=== PATIENT | male | born 1950 | race Caucasian/White ===

== ENCOUNTER → 2016-05-19 | Outpatient (CLI) | payer BC ==
--- NOTE | 2016-05-19 14:26 | US ---
EXAMINATION TYPE: US prostate transrectal DATE OF EXAM: 05/19/2016 9:14 AM COMPARISON: NONE CLINICAL HISTORY: Elevated PSA, no urinary symptoms, unknown previous labs. This examination was performed using the transrectal probe. EXAM MEASUREMENTS: Gland Size: 4.6 x 5.2 x 3.7cm Volume: 47.0ml Predicted PSA: 5.6 Actual PSA (if available):4.7 TECHNOLOGIST IMPRESSION: Heterogeneous PZ with no obvious focal areas seen, calcified CZ Seminal vesicles are not well seen on initial images saved. Prostate gland is enlarged in size and he terogeneous in appearance. Central zone calcifications are present. No worrisome hypoechoic periphera l zone nodule is clearly seen. IMPRESSION: Prostate gland is enlarged in size consistent with BPH. No worrisome nodule is evident.
== END | disposition home or self-care (01) ==
LOC: RADUSMAIN 08:53
PROVIDERS: ATTEND Family Medicine
DX: N40.0 Benign prostatic hyperplasia without lower urinary tract symptoms (principal)
CPT/HCPCS: 76872

== ENCOUNTER → 2016-06-29 | Outpatient (CLI) | payer BC ==
[2016-06-29 07:00] LABS: CH 31.3; CHCM 34.6; HCT 45.6 % (39.0-53.0); HDW 2.53; HGB 15.6 gm/dL (13.0-17.5); MCH 31.2 pg (25.0-35.0); MCHC 34.3 g/dL (31.0-37.0); MCV 90.9 fL (80.0-100.0); Mean Platelet Volume 8.1; RBC 5.02 m/uL (4.30-5.90); RDW 12.4 % (11.5-15.5); WBC 9.7 k/uL (3.8-10.6)
[2016-06-29 07:36] LABS: Anion Gap 12 mmol/L; Blood Urea Nitrogen 15 mg/dL (9-20); Carbon Dioxide 25 mmol/L (22-30); Chloride 106 mmol/L (98-107); Non-African American GFR(MDRD) >60 (>60 ml/min/1.73 sqM); Potassium 4.4 mmol/L (3.5-5.1); Sodium 143 mmol/L (137-145)
== END | disposition home or self-care (01) ==
LOC: LABPAT 06:33
PROVIDERS: ATTEND Internal Medicine Interventional Cardiology
DX: Z01.812 Encounter for preprocedural laboratory examination (principal); I10 Essential (primary) hypertension; I25.10 Atherosclerotic heart disease of native coronary artery without angina pectoris; R06.02 Shortness of breath; R94.39 Abnormal result of other cardiovascular function study
CPT/HCPCS: 80051; 82565; 84520; 85027

== ENCOUNTER 2016-07-01 06:16 | Day surgery (SDC) | payer BC ==
[2016-06-28 10:28] VITALS: BMI 32.1
[~2016-07-01 06:16] MED LIST: ALPRAZolam 0.25 MG TAB PO PRN; ALPRAZolam 0.5 MG TAB PO PRN; ASPIRIN 325 MG TAB PO STA; ATORVASTATIN 80 MG TAB PO STA; NITROGLYCERIN SL TABS 0.4 MG TAB SUBLINGUAL PRN; SODIUM CHLORIDE 0.9% 1,000 ML in EMPTY BAG 1 BAG IV ONE
[2016-07-01 06:45] VITALS: RESP 16; TEMP 97.9
[2016-07-01] MEDS ORDERED: diphenhydrAMINE 50 MG/ML 1 ML VIAL ONE (07:17)
[2016-07-01] MEDS ORDERED: LIDOCAINE 2% INJ 20 MG/ML (20 ML MDV) ONE (07:17)
[2016-07-01] MEDS ORDERED: MIDAZOLAM 2 MG/2 ML VIAL ONE (07:17)
[2016-07-01] MEDS ORDERED: SODIUM CHLORIDE 0.9% (PF) 10 ML VIAL ONE (07:27)
[2016-07-01] MEDS ORDERED: VERAPAMIL 2.5 MG/ML 2 ML AMP ONE (07:27)
[2016-07-01] MEDS ORDERED: HEPARIN SODIUM 1,000 UNIT/ML VIAL ONE (07:30)
[2016-07-01] MEDS ORDERED: diphenhydrAMINE 50 MG/ML 1 ML VIAL IVP ONE (07:36)
[2016-07-01] MEDS ORDERED: MIDAZOLAM 2 MG/2 ML VIAL IV ONE (07:37)
[2016-07-01] MEDS ORDERED: LIDOCAINE 2% INJ 20 MG/ML SQ ONE (07:41)
[2016-07-01] MEDS ORDERED: VERAPAMIL SYRINGE (5 MG/10 ML) INTRAARTER ONE (07:43)
[2016-07-01] MEDS ORDERED: IOHEXOL 350 MG/ML 100 ML BOTTLE INJ ONE (08:04)
[2016-07-01] MEDS ORDERED: RX INFO: IV CONTRAST WAS GIVEN 1 EACH MISC MISCELLANE PRN (08:22)
[2016-07-01] MEDS ORDERED: SODIUM CHLORIDE 0.9% 1,000 ML IV SCH (08:30)
--- NOTE | 2016-07-01 09:22 | CC ---
DATE OF SERVICE: 07/01/2016 PROCEDURE: Left heart catheterization, coronary angiography and left ventriculography. Performed by Dr. Linda Doherty. CLINICAL INFORMATION: Mr. Shakir Rodriguez is a 65-year-old gentleman who has known history of hypertension, hyperlipidemia, who underwent stenting of mid LAD performed in 2008 by me. Since then, he has done well. A repeat cardiac catheterization in 2011 suggested that the stented segment was patent and the left main did not have any significant stenosis. He was doing well on medical therapy and recently had a stress test, walked for 9 minutes and there was a question of inferobasal hypokinesia with some subjective symptoms of chest tightness at 9 minutes of exercise and a heart rate of 130 beats/min. There was a medium-sized reversible defect mid and inferobasal segment noted. Given this, he was advised coronary angiography. Risks, benefits, options, and rationale were explained to the patient in great detail prior to the procedure. PROCEDURE NOTE: Under local anesthesia and strict aseptic precautions, a 6 Korean introducer was placed in the right radial artery. Using an Ultimate 1 catheter, I performed selective coronary angiography and then used a pigtail catheter to check LV pressures and performed an LV gram. Patient tolerated the procedure well without complications. The sheath was taken out and TR band applied uneventfully with good saturation in the fingers of the right hand. CARDIAC CATHETERIZATION FINDINGS: The left ventricle end-diastolic pressure was about 12 mmHg without any gradient across the aortic valve. LEFT VENTRICULOGRAM: This was performed in 30 degree KELYL projection and revealed left ventricle is of normal size with good systolic function. Ejection fraction of 60% without mitral regurgitation. LEFT MAIN CORONARY ARTERY: This is a short vessel, which is angulated and there is evidence of about a 30% to 35% narrowing in the distal left main just before it bifurcates into LAD and circumflex. Compared to the previous study, there is some modest progression of disease noted. This was best seen in a 15 degree KELLY 35 caudal projection. The left main then bifurcates into LAD and circumflex. The distal left main has about a 30% to 35% narrowing. This is not a surgical left main. LEFT ANTERIOR DESCENDING CORONARY ARTERY: This is a good caliber vessel that extends along the anterior wall and gives off a good-sized diagonal branch very proximally. After the diagonal branch, the LAD has been stented and the stented segment is widely patent. There is a septal branch that comes off right before the stented segment and the septal branch has about a 50% to 55% stenosis. The stent itself is widely patent with no more than 30% narrowing. The diagonal branch as well as LAD and septal branch are free of significant disease. The septal branch in its proximal portion before the stented segment has about a 50% to 55% narrowing. The LAD branches are free of significant disease. The diagonal branch is of good caliber and distribution, is also free of significant disease. LEFT POSTERIOR CIRCUMFLEX CORONARY ARTERY: Technically a dominant vessel; gives off a large obtuse marginal that runs laterally, is free of significant disease, then the circumflex continues in the AV groove and gives several distal branches, all the 3 distal branches are smaller in caliber but no significant disease, and supply a fair amount of myocardium. Circumflex therefore is disease-free vessel relatively. RIGHT CORONARY ARTERY: This vessel is a nondominant vessel, has about a 50% to 55% mid lesion, gives off an acute marginal branch, but overall there is no critical stenosis in this nondominant RCA that supplies a fair amount of myocardium. FINAL IMPRESSION: This patient has a left dominant system. There is a 30% to 35% distal left main disease. Left anterior descending artery in the stented segment, the diagonal and septal are relatively free of any significant disease and circumflex is free of significant disease. Right is nondominant, has a 55% mid lesion. Left ventricular size and systolic function is normal. The filling pressures are also normal. There is no evidence of any mitral regurgitation. RECOMMENDATION: This patient walked for 9 minutes at a heart rate of 130 beats per minute and the area of ischemia in the mid and inferobasal segment does not correspond to any angiographic findings. The left main progression of disease is not surgical. After careful evaluation of the angiograms and looking at his clinical scenario that he is able to walk for 30 to 35 minutes at a casual pace without a problem and a 9 minute walk on the treadmill on standard Richard protocol, I do not believe we are dealing with any significant left main disease. Findings were discussed with the patient in great detail. I am recommending that he can be discharged today on medical therapy. Will add a small dose of beta pinky and also aggressively control his lipid profile. Patient will be discharged later on today and see Dr. Bagley in the office.
--- NOTE | 2016-07-01 09:25 | LTR ---
July 01, 2016 RE: JenniferShakir Dear Dr. Veloz; Thank you for the opportunity to participate in the care of Mr. Rodriguez. Please find enclosed my detailed cardiac cath report for your records. This gentleman has some progression of disease, but I do not believe any surgical intervention is necessary. The left main is about 30% to 35% narrowed prior to bifurcation. Continued medical therapy with an LDL goal of under 70 and addition of a small dose of beta pinky is advised. Thank you for your referral and please call for questions. With kindest regard. Sincerely yours, HAYLEE WELLER MD
[2016-07-01 10:07] VITALS: BP 148/76; PULSE 70
[2016-07-01] MEDS ORDERED: ACETAMINOPHEN TAB 325 MG TAB ONE (12:39)
== END 2016-07-01 16:00 | disposition home or self-care (01) ==
LOC: CATHCVL 06:16
PROVIDERS: ATTEND Internal Medicine Interventional Cardiology
DX: I25.110 Atherosclerotic heart disease of native coronary artery with unstable angina pectoris (principal); Z95.5 Presence of coronary angioplasty implant and graft; I10 Essential (primary) hypertension; E78.5 Hyperlipidemia, unspecified; Z79.82 Long term (current) use of aspirin; Z79.899 Other long term (current) drug therapy
CPT/HCPCS: 93458; 99152; 99153; C1894; J2001; J2250; J1200; Q9967; J1644

== ENCOUNTER → 2019-02-26 | Outpatient (CLI) | payer MEDICARE, OTHER ==
--- NOTE | 2019-02-26 07:50 | CT ---
EXAMINATION TYPE: CT chest wo con DATE OF EXAM: 02/26/2019 COMPARISON: None HISTORY: Cough, asthma CT DLP: 434.5 mGycm, Automated exposure control for dose reduction was used. CONTRAST: Performed injected with 0 mL of Isovue 300. TECHNIQUE: Axial images were obtained at 5 mm thick sections. Reconstructed images are reviewed on [employer] computer in the coronal plane. FINDINGS: Portion of the thyroid visualized is normal. No suspicious lung nodules or focal infiltrates are present. No enlarged mediastinal or hilar adenopathy is evident. The ascending aorta diameter at the level o f the main pulmonary artery is 3.6 cm. The main pulmonary artery diameter at the bifurcation is 2.6 cm. There is dense extensive coronary artery calcification present. Limited CT sections are obtained through the upper abdomen. Calcified granuloma may be within the rig ht lobe liver. Upper abdomen is otherwise unremarkable. IMPRESSIONS: 1. No suspicious acute changes.
== END | disposition home or self-care (01) ==
LOC: RADCTMAIN 07:24
PROVIDERS: ATTEND Internal Medicine Pulmonary Disease
DX: J45.909 Unspecified asthma, uncomplicated (principal); E66.9 Obesity, unspecified; E11.9 Type 2 diabetes mellitus without complications; I24.9 Acute ischemic heart disease, unspecified; M10.9 Gout, unspecified; K21.9 Gastro-esophageal reflux disease without esophagitis
CPT/HCPCS: 71250

== ENCOUNTER → 2020-03-24 | Outpatient (CLI) | payer MEDICARE, OTHER ==
--- NOTE | 2020-03-24 10:03 | US ---
EXAMINATION TYPE: US kidneys/renal and bladder DATE OF EXAM: 03/24/2020 COMPARISON: NONE CLINICAL HISTORY: R31.29 Hematuria. EXAM MEASUREMENTS: Right Kidney: 10.1 x 5.2 x 4.8 cm Left Kidney: 11.4 x 6.4 x 5.0 cm Right Kidney: No hydronephrosis or masses seen Left Kidney: No hydronephrosis. Cystic area visualized measuring 1.9 x 2.0 x 2.5 cm Bladder: wnl Bilateral Jets seen: yes There is no evidence for hydronephrosis at this point in time. No nephrolithiasis is seen. The uri nary bladder is anechoic. Bilateral ureteral jets are seen. IMPRESSION: 1. Cortical renal cyst left kidney.
== END | disposition home or self-care (01) ==
LOC: RADUSWWP 07:01
PROVIDERS: ATTEND Urology
DX: N28.1 Cyst of kidney, acquired (principal); R97.20 Elevated prostate specific antigen [PSA]
CPT/HCPCS: 36415; 76770; 84153

== ENCOUNTER → 2020-04-28 | Outpatient (CLI) | payer MEDICARE ==
[2020-04-28 11:41] LABS: African American GFR (CKD) >90 (>60 ml/min/1.73 sqM); Blood Urea Nitrogen 16 mg/dL (9-20); Non-African American GFR(CKD) 86 (>60 ml/min/1.73 sqM)
--- NOTE | 2020-04-28 15:37 | NM ---
EXAMINATION TYPE: NM bone scan whole body DATE OF EXAM: 04/28/2020 COMPARISON: CT abdomen and pelvis earlier today. Chest CT February 26, 2019. HISTORY: Prostate cancer. Delayed whole-body scanning was performed following the injection of 22.5 mCi Tc 99m MDP. Images acq uired 3 hours post injection. Images obtained in anterior and posterior projection along with additio nal projections of the thorax and abdomen. FINDINGS: Focus of increased radiotracer uptake in the right lower sternum corresponds to subtle 3 mm sclerotic lesion coronal image 20 in January 2019, suspect enlargement of this lesion consistent with osseous metastatic disease. There are 2 Smaller foci of radiotracer uptake in the lower thoracic spine withou t CT correlate. Area of increased radiotracer uptake left neck mid cervical region of uncertain etiol ogy. Areas of increased radiotracer uptake left foot at first metatarsophalangeal joint and midfoot region centrally to lateral aspects presumed product of degenerative change. Mildly distended bladder. Moderate degenerative changes bilateral knees. IMPRESSION: Early osseous metastatic disease suspected as detailed above. Correlate with PSA values.
--- NOTE | 2020-04-28 15:51 | CT ---
EXAMINATION TYPE: CT abdomen pelvis w con DATE OF EXAM: 04/28/2020 COMPARISON: No prior comparisons available HISTORY: 69-year-old male C61, Follow up for prostate CA TECHNIQUE: Contiguous axial scanning of the abdomen and pelvis following administration of 100 ml Iso rachel 300 IV contrast. Delayed images through the kidneys and coronal/sagittal reconstructions perform ed. CT DLP: 1218 mGycm Automated exposure control for dose reduction was used. FINDINGS: Heart normal size without pericardial effusion. Some strandy atelectasis at the peripheral left base and basilar right middle lobe. No pleural effusion. Small 7 mm lower left paraesophageal lymph node is nonspecific. There may be mild fatty infiltration of the liver. Calcified granuloma suggested along the right hepa tic dome. Portal venous system is patent. No biliary ductal dilatation. Gallbladder, adrenal glands, right kidney, spleen, and pancreas appear within normal limits. 2.3 cm cortical cyst posterior left kidney. No dilated small bowel, free fluid, or free air. Scattered mild stool. Oral contrast progressed into the mid sigmoid colon. Sigmoid colon is redundant . Scattered diverticular change in the left side of the colon. No pericolonic inflammatory change. Some scattered shotty retroperitoneal lymph nodes measuring up to 8 mm in the left para-aortic region , axial image 47. These are nonspecific. No mesenteric lymphadenopathy. Enlarged left external iliac chain lymph node at 1.5 cm, axial image 65 and borderline-sized 8mm righ t external iliac chain lymph node, axial image 68. Bladder urine distended with mild circumference of wall thickening and minimal perivesicular fat stra nding anteriorly. Prostate gland enlarged at 5.5 cm wide with some central calcifications. No abnorma l fluid collection the pelvis. Patulous left inguinal canal. Bones: Heterotopic ossification along the bilateral abductor origins, right greater the left suggesti ng sequela of prior injury. Mild degenerative change of both hips. Mild degenerative change left SI j oint. 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 Mild to moderate degenerative disc disease lower lumbar spine. No osteoblastic lesion identified. IMPRESSION: 1. PROSTATOMEGALY 5.5 CM WIDE. 2. ENLARGED LEFT EXTERNAL ILIAC CHAIN LYMPH NODE AT 1.5 CM. CORRELATE WITH ANY AVAILABLE OUTSIDE PRIO RS TO DETERMINE STABILITY. METASTATIC LYMPH NODE NOT EXCLUDED AT THIS TIME. 3. BORDERLINE SIZED 8MM RIGHT EXTERNAL ILIAC CHAIN LYMPH NODE AND NONSPECIFIC BORDERLINE SIZED 8 MM L EFT PARA-AORTIC LYMPH NODE. THIS CAN BE REASSESSED AT FOLLOW-UP. 4. MILD CIRCUMFERENTIAL BLADDER WALL THICKENING COULD REPRESENT CHRONIC BLADDER WALL HYPERTROPHY OR C YSTITIS. CLINICALLY CORRELATE. 5. HEPATIC STEATOSIS AND LEFT-SIDED COLONIC DIVERTICULOSIS.
== END | disposition home or self-care (01) ==
LOC: RADNMMAIN 10:44
PROVIDERS: ATTEND Urology
DX: N40.0 Benign prostatic hyperplasia without lower urinary tract symptoms (principal); R59.9 Enlarged lymph nodes, unspecified; N32.89 Other specified disorders of bladder; K76.0 Fatty (change of) liver, not elsewhere classified; K57.30 Diverticulosis of large intestine without perforation or abscess without bleeding; C79.51 Secondary malignant neoplasm of bone; C61 Malignant neoplasm of prostate
CPT/HCPCS: 82565; 84520; 74177; 78306; 36415; A9503; Q9967

== ENCOUNTER → 2020-08-13 | Outpatient (CLI) | payer MEDICARE ==
[2020-08-13 09:42] LABS: African American GFR (CKD) >90 (>60 ml/min/1.73 sqM); Blood Urea Nitrogen 13 mg/dL (9-20); Non-African American GFR(CKD) 90 (>60 ml/min/1.73 sqM)
--- NOTE | 2020-08-13 12:15 | CT ---
EXAMINATION TYPE: CT abdomen pelvis w con DATE OF EXAM: 08/13/2020 COMPARISON: CT abdomen and pelvis April 28, 2020 HISTORY: Prostate CA CT DLP: 1302 mGycm, Automated Exposure Control for Dose Reduction was Utilized. CONTRAST: CT scan of the abdomen and pelvis is performed with oral and with IV Contrast, patient injected with 100 mL of Isovue 300. FINDINGS: LUNG BASES: Mild linear scarring anterior left lung base redemonstrated. LIVER/GB: Liver remains diffusely low dense consistent with diffuse fatty infiltration. PANCREAS: No significant abnormality is seen. SPLEEN: No significant abnormality is seen. ADRENALS: No significant abnormality is seen. KIDNEYS: Stable 2.3 cm thin-walled cyst posteriorly in the left kidney midpole level series 7 image 3 4. Satisfactory distention of the bladder. BOWEL: Oral contrast reaches level of the distal left colon. No suspicious small or large bowel dilat ation is present. PROSTATE/SEMINAL VESICLES: Enlarged prostate gland consistent with BPH. Central calcifications. LYMPH NODES: Less prominent left external iliac chain lymph node measuring 10 x 6 mm axial image 63 v ersus 15 x 14 mm prior study image 65. Stable nonenlarged right external iliac chain lymph node on im age 64. No new greater than 1 cm adenopathy. Stable prominent but subcentimeter left periaortic lymph nodes axial image 44 for reference. OSSEOUS STRUCTURES: Moderate disc space narrowing L4-L5 and L5-S1 levels. Multilevel spinous process hypertrophy. Facet arthropathy lower lumbar levels. OTHER: Heterogeneous fat stranding in the anterior abdominal wall the level of umbilicus could reflec t scarring from interval laparoscopic surgery, correlate clinically. IMPRESSION: Improved left external iliac chain enlarged lymph node. No new greater than 1 cm lymph no camille. No new suspicious mass or adenopathy.
== END | disposition home or self-care (01) ==
LOC: RADCTMAIN 08:55
PROVIDERS: ATTEND Urology
DX: C61 Malignant neoplasm of prostate (principal)
CPT/HCPCS: 82565; 84520; 74177; 36415; Q9967 ×2

== ENCOUNTER → 2020-12-31 | Outpatient (CLI) | payer MEDICARE ==
[2020-12-31 12:34] LABS: Prostate Specific Antigen <0.1 ng/mL (0.0-6.5)
== END | disposition home or self-care (01) ==
LOC: LABWHC1 07:19
PROVIDERS: ATTEND Urology
DX: C61 Malignant neoplasm of prostate (principal)
CPT/HCPCS: 36415; 84153; 84403

== ENCOUNTER → 2021-01-28 | Outpatient (CLI) | payer MEDICARE ==
[2021-01-28 11:58] LABS: African American GFR (CKD) >90 (>60 ml/min/1.73 sqM); Blood Urea Nitrogen 14 mg/dL (9-20); Non-African American GFR(CKD) >90 (>60 ml/min/1.73 sqM)
--- NOTE | 2021-01-28 13:58 | CT ---
EXAMINATION TYPE: CT abdomen pelvis w con DATE OF EXAM: 01/28/2021 COMPARISON: 08/13/2020 INDICATION: Prostate Cancer DLP: 1215.30 mGycm, Automated exposure control for dose reduction was used. CONTRAST: 100 ml mL of Isovue 300. Study performed with Oral Contrast TECHNIQUE: Axial images were obtained from above the diaphragm to the pubic rami in the axial plane a t 5 mm thick sections. Reconstructed images are reviewed on the computer in the coronal plane. FINDINGS: Limited CT sections are obtained the lung bases. The lung bases are clear. CT ABDOMEN: Liver: Calcifications within the posterior lateral right superior lobe of the liver. There may be min imal fatty infiltration liver. Spleen: Normal Pancreas: Normal Adrenal glands: The adrenal glands are normal. Gallbladder: Normal Kidneys: No masses are evident. No hydronephrosis is present. There is a 1.9 cm posterolateral left renal cyst measuring 10 Hounsfield units. Delayed images were obtained through the kidneys, which r emain unremarkable. Aorta: Vascular calcification is within the aorta. Inferior vena cava: Normal. CT PELVIS: Loops of bowel within the abdomen and pelvis are normal. There are loops of bowel which are incom pletely distended or lack oral contrast limiting their evaluation. Appendix: Not visualized. No dilated tubular structure or inflammatory change is evident. Urinary bladder: Normal. Genitourinary structures: Prostate is mildly prominent contains some calcification. Patient's reporte d prostate cancer is not identified by CT exam. Osseous structures: No suspicious lytic or sclerotic lesions are evident. Degenerative disc changes p resent L5-S1. Posterior disc space narrowing is present L4-5. IMPRESSIONS: 1. Left renal cyst. 2. Calcification within the right lobe liver present previously. 3. No acute changes evident.
== END | disposition home or self-care (01) ==
LOC: RADCTMAIN 10:56
PROVIDERS: ATTEND Urology
DX: C61 Malignant neoplasm of prostate (principal)
CPT/HCPCS: 82565; 84520; 74177; 36415; Q9967

== ENCOUNTER → 2021-04-08 | Outpatient (CLI) | payer MEDICARE ==
[2021-04-08 13:08] LABS: Testosterone 10.3 ng/mL (86.98-780.10)
== END | disposition home or self-care (01) ==
LOC: LABWHC1 07:05
PROVIDERS: ATTEND Urology
DX: C61 Malignant neoplasm of prostate (principal)
CPT/HCPCS: 36415; 84153; 84403

== ENCOUNTER → 2021-07-09 | Outpatient (CLI) | payer MEDICARE ==
[2021-07-09 15:53] LABS: Testosterone <2.50 ng/mL (86.98-780.10)
== END | disposition home or self-care (01) ==
LOC: LABWHC1 08:20
PROVIDERS: ATTEND Urology
DX: C61 Malignant neoplasm of prostate (principal)
CPT/HCPCS: 36415; 84153; 84403

== ENCOUNTER → 2021-12-15 | Outpatient (CLI) | payer MEDICARE, OTHER ==
--- NOTE | 2021-12-15 16:53 | US ---
EXAMINATION TYPE: US venous doppler duplex LE LT DATE OF EXAM: 12/15/2021 3:58 PM COMPARISON: NONE CLINICAL HISTORY: M79.662 PAIN IN LEFT, R22.42 SWELLING IN LEFT LEG. Left leg swelling, patient on bl ood thinners SIDE PERFORMED: Left TECHNIQUE: The lower extremity deep venous system is examined utilizing real time linear array sonog [place] with graded compression, doppler sonography and color-flow sonography. VESSELS IMAGED: Common Femoral Vein Deep Femoral Vein Greater Saphenous Vein * Femoral Vein Popliteal Vein Small Saphenous Vein * Proximal Calf Veins (* superficial vessels) Left Leg: Appears negative for DVT IMPRESSION: No evidence of deep vein thrombosis in the left leg.
== END | disposition home or self-care (01) ==
LOC: RADUSWWP 15:55
PROVIDERS: ATTEND Internal Medicine Hematology & Oncology
DX: M79.662 Pain in left lower leg (principal); R22.42 Localized swelling, mass and lump, left lower limb

== ENCOUNTER → 2021-12-18 | Outpatient (CLI) | payer MEDICARE ==
[2021-12-18 14:36] LABS: Basophils # (A) 0.09 X 10*3/uL (0.00-0.10); Basophils % (A) 1.4 %; Eosinophils # (A) 0.74 X 10*3/uL (0.04-0.35); Eosinophils % (A) 11.4 %; HCT 38.4 % (39.6-50.0); HGB 13.1 g/dL (13.0-17.0); Immature Grans, Automated 0.6 %; Lymphocytes % (A) 21.6 %; MCH 30.7 pg (27.0-32.0); MCHC 34.1 g/dL (32.0-37.0); MCV 89.9 fL (80.0-97.0); Mean Platelet Volume 11.7 fL (9.5-12.2); Monocytes # (A) 0.85 X 10*3/uL (0.20-1.00); Monocytes % (A) 13.1 %; NRBC Per 100 WBC 0 /100 WBCS (0.0-0.0); Neutrophils # (A) 3.37 X 10*3/uL (1.80-7.70); Neutrophils % (A) 51.9 %; Platelet Count 211 X 10*3/uL (140-440); RBC 4.27 X 10*6/uL (4.40-5.60); RDW 11.9 % (11.5-14.5); WBC 6.49 X 10*3/uL (4.50-10.00)
[2021-12-18 14:56] LABS: Anion Gap 10.9 mmol/L (10.00-18.00); BUN/Creat Ratio 12.11 Ratio (12.00-20.00); Blood Urea Nitrogen 9.2 mg/dL (9.0-27.0); Calcium 9.7 mg/dL (8.7-10.3); Carbon Dioxide 24.5 mmol/L (20.0-27.5); Non-African American GFR(CKD) 90.6 (60.0-200.0); Potassium 4.6 mmol/L (3.5-5.5)
== END | disposition home or self-care (01) ==
LOC: LABPAT 09:28
PROVIDERS: ATTEND Urology
DX: Z01.812 Encounter for preprocedural laboratory examination (principal); C61 Malignant neoplasm of prostate
CPT/HCPCS: 80048; 85025

== ENCOUNTER 2021-12-24 11:40 | Day surgery (SDC) | payer MEDICARE ==
[2021-12-22 16:21] VITALS: BMI 32.3
--- NOTE | 2021-12-23 21:26 | P.GSHP ---
History of Present Illness H&P Date: 12/23/21 Chief Complaint: Prostate cancer The patient is a 71-year-old white male diagnosed with prostate cancer April 2020. PSA level at that time was 10.1. His [place] score was 9. Staging computed tomography scan of the pelvis showed an enlarged left external iliac lymph node, which reduced in size when treated with androgen deprivation therapy (ADT). He is being treated with ADT and Xtandi and his PSA level is 0. He has had an excellent response to treatment and now comes for IMRT. - Constitutional Constitutional: Reports fatigue - Genitourinary (Male) Genitourinary: Reports as per HPI - Psychiatric Psychiatric: Reports insomnia Past Medical History Past Medical History: Asthma, Cancer, COPD, Diabetes Mellitus, GERD/Reflux, Hyperlipidemia, Hypertension Additional Past Medical History / Comment(s): MELENOMA,HIATAL HERNIA, Prostate cancer History of Any Multi-Drug Resistant Organisms: None Reported Past Surgical History: Heart Catheterization, Heart Catheterization With Stent Additional Past Surgical History / Comment(s): NASAL POLYPS, skin cancer removed from chest and scalp & shoulder. Past Anesthesia/Blood Transfusion Reactions: No Reported Reaction Date of Last Stent Placement:: JUN 2008 Past Psychological History: No Psychological Hx Reported Smoking Status: Never smoker Past Alcohol Use History: None Reported Past Drug Use History: None Reported - Past Family History Mother Family Medical History: No Reported History Father Family Medical History: Cancer Medications and Allergies Home Medications Medication Instructions Recorded Confirmed Type Aspirin 81 mg PO DAILY 06/28/16 12/22/21 History Atorvastatin Calcium [Lipitor] 40 mg PO BID 06/28/16 12/22/21 History Budesonide/Formoterol Fumarate 1 puff IH BID PRN 06/28/16 12/22/21 History [Symbicort 160-4.5 Mcg Inhaler] Cetirizine HCl [Zyrtec] 10 mg PO DAILY 06/28/16 12/22/21 History Lansoprazole [Prevacid] 15 mg PO DAILY 06/28/16 12/22/21 History Multivitamin [Men's Multi-Vitamin] 1 each PO DAILY 06/28/16 12/22/21 History Nitroglycerin Sl Tabs [Nitrostat] 0.4 mg SUBLINGUAL Q5M PRN 06/28/16 12/22/21 History Vitamin B Complex 1 each PO DAILY 06/28/16 12/22/21 History Albuterol Inhaler [Ventolin Hfa 1 puff INHALATION RT-TID 12/22/21 12/22/21 History Inhaler] Atorvastatin [Lipitor] 40 mg PO DAILY 12/22/21 12/22/21 History Enzalutamide [Xtandi] 160 mg PO HS 12/22/21 12/22/21 History Leuprolide Acetate [Lupron Depot 3.75 mg IM Q6M 12/22/21 12/22/21 History (Lupaneta)] Metoprolol Tartrate 25 mg PO DAILY 12/22/21 12/22/21 History Tamsulosin [Flomax] 0.4 mg PO DAILY 12/22/21 12/22/21 History amLODIPine BESYLATE [Amlodipine 5 mg PO DAILY 12/22/21 12/22/21 History Besylate] sitaGLIPtin PHOS/metFORMIN HCL 1 tab PO DAILY 12/22/21 12/22/21 History [Janumet Xr 50-500 mg Tablet] Allergies Allergy/AdvReac Type Severity Reaction Status Date / Time No Known Allergies Allergy Verified 12/22/21 16:02 Surgical - Exam - General well developed, well nourished, no distress - Neck no masses, trachea midline - Respiratory normal respiratory effort - Abdomen Abdomen: soft, non tender, no guarding, no rigid, no rebound - Genitourinary normal penis with no external lesions, testicles non-tender - Rectum Rectum: normal sphincter tone, no masses, other (Firm left prostatic base) - Psychiatric oriented to time, oriented to person, oriented to place, speech is normal, memory intact Results - Imaging CT scan - pelvis: report reviewed Assessment and Plan (1) Malignant neoplasm of prostate Status: Acute Code(s): C61 - MALIGNANT NEOPLASM OF PROSTATE SNOMED Code(s): 963245337 Plan: The SpaceOAR implant has been reviewed in detail with the patient. He understands that the rationale for this is to create separation between the prostate and rectum, thus reducing the risk of radiation proctitis. The material begins to breakdown 12-13 weeks following implant, and is reabsorbed by the body. Risks include anesthesia, bleeding, infection, and perineal discomfort. He understands that if the rectal wall is perforated the procedure will need to be aborted.
[~2021-12-24 11:40] MED LIST changes: -ALPRAZolam 0.25 MG TAB PO PRN; -ALPRAZolam 0.5 MG TAB PO PRN; -ASPIRIN 325 MG TAB PO STA; -ATORVASTATIN 80 MG TAB PO STA; +DEXAMETHASONE SOD PHOSPHATE 4 MG/ML 1 ML VIAL IV ONE; +HYDROmorphone 0.5 MG/0.5 ML SYRINGE IVP PRN; +LACTATED RINGERS 1,000 ML IV SCH; +LIDOCAINE 1% (10MG/ML) FOR IV START INTRADERMA PRN; -NITROGLYCERIN SL TABS 0.4 MG TAB SUBLINGUAL PRN; +ONDANSETRON 4 MG/2 ML VIAL IVP PRN; -SODIUM CHLORIDE 0.9% 1,000 ML in EMPTY BAG 1 BAG IV ONE
[2021-12-24 12:51] VITALS: RESP 16; TEMP 97
[2021-12-24 12:54] LABS: Glucose,Whole Blood 113 mg/dL (70-110)
[2021-12-24] MEDS ORDERED: ALBUTEROL NEBULIZED 2.5 MG/3 ML INHALATION ONE (12:59)
[2021-12-24] MEDS ORDERED: PROPOFOL 10 MG/ML 20 ML VIAL IV ONE (13:50)
[2021-12-24] MEDS ORDERED: fentaNYL (PF) 50 MCG/ML 2 ML AMP ONE (13:50)
[2021-12-24] MEDS ORDERED: LIDOCAINE 2% INJ 20 MG/ML SQ ONE (14:04)
--- NOTE | 2021-12-24 14:16 | P.OP ---
Date of Procedure: 12/24/21 Preoperative Diagnosis: Adenocarcinoma the prostate Postoperative Diagnosis: Same Procedure(s) Performed: SpaceOAR Implant Anesthesia: MAC Surgeon: Wilfredo Torres Estimated Blood Loss (ml): 5 IV fluids (ml): 100 Pathology: none sent Condition: stable Disposition: PACU Indications for Procedure: The patient is a 71-year-old white male diagnosed with prostate cancer April 2020. PSA level at that time was 10.1. His [place] score was 9. Staging computed tomography scan of the pelvis showed an enlarged left external iliac lymph node, which reduced in size when treated with androgen deprivation therapy (ADT). He is being treated with ADT and Xtandi and his PSA level is 0. He has had an excellent response to treatment and now comes for IMRT. Operative Findings: 1 cm separation created between prostate and rectum Description of Procedure: The patient was taken to the operating room and placed in the dorsolithotomy position, with his legs supported in Gigi stirrups. The external genitalia was prepped and draped sterilely. The Bruel and Kjaer transrectal ultrasound probe was placed intrarectally. The prostate was imaged. The probe was then placed within the stabilizing stand. A spinal needle was advanced under ultrasonic guidance to the level of the urogenital diaphragm, and lidocaine was used to infiltrate the tissues as the needle was withdrawn. Next, the SpaceOAR needle was passed through the midline of the perineum, 1-2 cm anterior to the anal opening. The needle was slowly advanced under ultrasonic guidance until the needle tip was located within the fat plane between the prostate and rectum, at the level of the mid prostate gland. The needle was confirmed to be midline on the axial imaging. A small amount of normal saline was injected for hydrodissection. Next, the SpaceOAR components were mixed and loaded into the Y connector per protocol. The Y connector was then connected to the needle, and the components were injected slowly over a course of approximately 12 seconds. A total of 10 ml was injected. Significant distance was created between the prostate and rectum, as desired. It should be noted that at no point was there any concern of rectal perforation. The needle was withdrawn, as well as the transrectal ultrasound probe, and the procedure was terminated. The patient tolerated the procedure well and was taken to the recovery room in stable condition.
[2021-12-24 14:39] VITALS: BP 149/80; PULSE 80
== END 2021-12-24 15:02 | disposition home or self-care (01) ==
LOC: OR 11:40
PROVIDERS: ATTEND Urology
DX: C61 Malignant neoplasm of prostate (principal); J45.909 Unspecified asthma, uncomplicated; J44.9 Chronic obstructive pulmonary disease, unspecified; E11.9 Type 2 diabetes mellitus without complications; K21.9 Gastro-esophageal reflux disease without esophagitis; E78.5 Hyperlipidemia, unspecified; I10 Essential (primary) hypertension; K44.9 Diaphragmatic hernia without obstruction or gangrene; I25.10 Atherosclerotic heart disease of native coronary artery without angina pectoris; Z85.820 Personal history of malignant melanoma of skin; Z86.79 Personal history of other diseases of the circulatory system; Z79.51 Long term (current) use of inhaled steroids; Z79.82 Long term (current) use of aspirin; Z80.9 Family history of malignant neoplasm, unspecified; Z85.46 Personal history of malignant neoplasm of prostate; Z86.59 Personal history of other mental and behavioral disorders
CPT/HCPCS: 55874; C1889; J2001; J1100; J0690; J2405; J3010; J2704

== ENCOUNTER → 2022-01-23 | Outpatient (CLI) | payer MEDICARE ==
[2022-01-23 16:54] LABS: Testosterone 7.9 ng/mL (86.98-780.10)
== END | disposition home or self-care (01) ==
LOC: LABWHC1 09:41
PROVIDERS: ATTEND Urology
DX: C61 Malignant neoplasm of prostate (principal)
CPT/HCPCS: 36415; 84153; 84403

== ENCOUNTER → 2022-07-30 | Outpatient (CLI) | payer MEDICARE | END | disposition home or self-care (01) | LOC: LABWHC1 13:02 | PROVIDERS: ATTEND Urology | DX: C61 Malignant neoplasm of prostate (principal) | CPT/HCPCS: 36415; 84153; 84403 ==

== ENCOUNTER → 2022-12-22 | Outpatient (CLI) | payer MEDICARE ==
[~2022-12-22] MED LIST changes: -DEXAMETHASONE SOD PHOSPHATE 4 MG/ML 1 ML VIAL IV ONE; -HYDROmorphone 0.5 MG/0.5 ML SYRINGE IVP PRN; -LACTATED RINGERS 1,000 ML IV SCH; -LIDOCAINE 1% (10MG/ML) FOR IV START INTRADERMA PRN; -ONDANSETRON 4 MG/2 ML VIAL IVP PRN; +REGADENOSON 0.4 MG/5 ML SYRINGE IV ONE; +REGADENOSON 0.4 MG/5 ML SYRINGE IV PRN
--- NOTE | 2022-12-23 11:17 | NM ---
EXAMINATION TYPE: NM stress lexiscan cardiolite DATE OF EXAM: 12/23/2022 COMPARISON: NONE CLINICAL INDICATION: Male, 72 years old with history of I25.10 ATHSCL HEART DISEASE OF; TECHNIQUE: After the intravenous administration of 9.9 mCi Tc 99m Sestamibi - Cardiolite resting SPE CT images acquired 45 minutes post injection. The patient received 0.4mg Lexiscan, 25.1 mCi Tc 99m Sestamibi - Stress images obtained [address] injection FINDINGS: Review of stress and rest SPECT images demonstrates decreased perfusion inferior wall on stress image s. Stress-induced ischemia is not excluded. Gated analysis shows normal wall motion with an estimated left ventricular ejection fraction of 53 %. IMPRESSION: decreased perfusion inferior wall on stress images. Stress-induced ischemia is not excluded.
--- NOTE | 2022-12-23 19:25 | CA ---
Lexiscan Nuclear Stress Test Report Name: Shakir Rodriguez Exam Date: 12/22/2022 10:22 Exam Location: [place] Stress Ht (in): 67 Wt (lb): 195 BSA: 2.00 Ordering Phys: Roger Veloz MD Referring Phys: Stefania Menard Technologist: LUIS MANUEL,, Age: 72 Gender: M : 1950 Procedure CPT: Indications: I25.10 ATHSCL HEART DISEASE OF ICD-10 Codes: Patient History: Chest pain Medications: Meds past 24 hrs: Pretest Chest Pain: STRESS TEST Lexiscan Protocol Exercise Duration (min:sec): 02:[address] Depressions (mm): Angina Score: Beck Score: Resting HR (bpm): 57 Peak HR (bpm): 71 Resting BP (mmHg): 150 / 80 Peak BP (mmHg): 135 / 71 MPHR: 146 Target HR: 124 % MPHR: 49 METS: 1.0 Total Dose: Peak Dose: Atropine: Double Product: 9585 BP Response: Stress Termination: Infusion complete Stress Symptoms: Some chest pain #3 that resolved. Stress Summary: ECG ANALYSIS Resting ECG: Stress ECG: CONCLUSIONS Lexiscan Cardiolite stress test No ECG evidence for ischemia No arrhythmias Normal heart rate and blood pressure response Nuclear portion will be reported separately Dr. David Bagley MD (Electronically Signed) Final Date: 23 December 2022 19:24
== END | disposition home or self-care (01) ==
LOC: RADNMMAIN 08:44
PROVIDERS: ATTEND Family Medicine
DX: I25.10 Atherosclerotic heart disease of native coronary artery without angina pectoris (principal)
CPT/HCPCS: 78452; 93017

== ENCOUNTER → 2023-01-05 | Outpatient (CLI) | payer MEDICARE ==
[2023-01-06 02:29] LABS: HCT 34.7 % (39.6-50.0); MCH 29.2 pg (27.0-32.0); MCHC 31.7 d/dL (32.0-37.0); Mean Platelet Volume 11.1 FL (9.5-12.2); NRBC Per 100 WBC 0 X 10*3/uL (0.00-0.01); Platelet Count 219 X 10*3/uL (140-440); RBC 3.77 X 10*6/uL (4.40-5.60); RDW 13.3 % (11.5-14.5); WBC 5.94 X 10*3/uL (4.50-10.00)
[2023-01-06 02:56] LABS: Blood Urea Nitrogen 12.4 mg/dL (9.0-27.0); Carbon Dioxide 23.7 mmol/L (21.6-31.8); Chloride 106 mmol/L (96-109); Potassium 4.3 mmol/L (3.5-5.5); Sodium 141 mmol/L (135-145)
== END | disposition home or self-care (01) ==
LOC: LABPAT 14:47
PROVIDERS: ATTEND Internal Medicine Clinical Cardiac Electrophysiology
DX: Z01.812 Encounter for preprocedural laboratory examination (principal); I25.10 Atherosclerotic heart disease of native coronary artery without angina pectoris
CPT/HCPCS: 80051; 82565; 84520; 85027

== ENCOUNTER → 2023-02-03 | Outpatient (CLI) | payer OTHER ==
[2023-02-03 12:07] LABS: Anisocytosis Slight; HCT 31.7 % (39.0-53.0); HGB 10.1 gm/dL (13.0-17.5); Hypochromasia Marked; MCH 30.5 pg (25.0-35.0); MCHC 31.9 g/dL (31.0-37.0); MCV 95.5 fL (80.0-100.0); Mean Platelet Volume 7.1; Platelet Count 520 k/uL (150-450); RBC 3.32 m/uL (4.30-5.90); RDW 16.5 % (11.5-15.5); WBC 8.2 k/uL (3.8-10.6)
== END | disposition home or self-care (01) ==
LOC: LABWHC1 11:01
PROVIDERS: ATTEND Internal Medicine Clinical Cardiac Electrophysiology
DX: D50.0 Iron deficiency anemia secondary to blood loss (chronic) (principal)
CPT/HCPCS: 36415; 85027

== ENCOUNTER 2023-02-04 14:55 | Observation (INO) | payer OTHER, MEDICARE ==
[2023-02-04] MEDS ORDERED: SODIUM CHLORIDE 0.9% 500 ML 500 ML IV STA (15:24)
[2023-02-04 16:48] LABS: Anisocytosis Slight; Basophils % (A) 0 %; Eosinophils # (A) 0.7 k/uL (0-0.7); Eosinophils % (A) 13 %; HCT 30.7 % (39.0-53.0); HGB 9.8 gm/dL (13.0-17.5); Hypochromasia Moderate; Lymphocytes # (A) 0.7 k/uL (1.0-4.8); Lymphocytes % (A) 14 %; MCHC 31.9 g/dL (31.0-37.0); MCV 94.1 fL (80.0-100.0); Monocytes # (A) 0.5 k/uL (0-1.0); Monocytes % (A) 10 %; Neutrophils # (A) 3.2 k/uL (1.3-7.7); Neutrophils % (A) 59 %; Platelet Count 478 k/uL (150-450); RBC 3.26 m/uL (4.30-5.90); RDW 16.3 % (11.5-15.5); WBC 5.4 k/uL (3.8-10.6)
--- NOTE | 2023-02-04 16:48 | XR ---
EXAMINATION TYPE: XR chest 2V DATE OF EXAM: 02/04/2023 4:33 PM CLINICAL INDICATION:Male, 72 years old with history of Weakness; [facility] COMPARISON: Chest radiographs from 01/20/2023 TECHNIQUE: XR chest 2V Frontal and lateral views of the chest. FINDINGS: Lungs/Pleura: No evidence of focal consolidation or pneumothorax. Blunting of the costophrenic angles is present. Pulmonary vascularity: Mild pulmonary vascular congestion. Heart/mediastinum: Cardiomediastinal silhouette is enlarged and stable. Left atrial appendage occlusi on device is present. Musculoskeletal: No acute osseous pathology. Midline sternotomy wires are noted. IMPRESSION: Cardiomegaly with bilateral pleural effusions correlate for congestive heart failure.
--- NOTE | 2023-02-04 16:50 | ED ---
General Adult HPI - General Chief complaint: Weakness Stated complaint: fatigue /Post Op Heart Surgery 01/14, Time Seen by Provider: 02/04/23 15:16 Source: patient, RN notes reviewed, old records reviewed Mode of arrival: ambulatory Limitations: no limitations - History of Present Illness Initial comments: Patient is a 72-year-old male who presents emergency Department complaining of fatigue. She has complained states shortness of breath the patient is most complaining of fatigue and weakness for the last week or so. Had cardiac bypass approximately 3 weeks ago here at [facility]. Denies any fevers, chills, cough. Denies any chest pain. Denies any abdominal pain, nausea, vomiting. Just complains of generalized fatigue with any activity and at rest. This would worsening over the last week. Denies any sick contacts. His no other acute complaints at this time. Presents for further evaluation at this time.Patient is concerned for possible anemia as he did require 2 blood transfusions while here last time. Does endorse diarrhea that is nonbloody and brown in color. Denies any dark tarry black stools. Denies any hematemesis or emesis. Denies any hematochezia or bright red blood per rectum or melena. Patient is on aspirin and Plavix. - Related Data Home Medications Medication Instructions Recorded Confirmed Multivitamin [Men's Multi-Vitamin] 1 tab PO DAILY 06/28/16 02/04/23 Tamsulosin [Flomax] 0.4 mg PO DAILY 12/22/21 02/04/23 Albuterol Sulfate [Proair 1 puff INHALATION Q4-6H PRN 01/10/23 02/04/23 Respiclick] Ascorbic Acid [Vitamin C] 500 mg PO DAILY 01/10/23 02/04/23 Atorvastatin [Lipitor] 80 mg PO HS 01/10/23 02/04/23 Beclomethasone Dipropionate [Qvar 2 puff INHALATION RT-BID 01/10/23 02/04/23 80mcg Redihaler] Cholecalciferol [Vitamin D3 (25 50 mcg PO DAILY 01/10/23 02/04/23 Mcg = 1000 Iu)] Cranberry Fruit Extract [Cranberry] 4,200 mg PO DAILY 01/10/23 02/04/23 Enzalutamide [Xtandi] 160 mg PO HS 01/10/23 02/04/23 Lansoprazole [Prevacid] 30 mg PO DAILY 01/10/23 02/04/23 Montelukast [Singulair] 10 mg PO HS 01/10/23 02/04/23 sitaGLIPtin PHOS/metFORMIN HCL 1 tab PO DAILY 01/10/23 02/04/23 [Janumet 50-1,000 mg Tablet] Cranberry 4200mg 4,200 mg PO HS 02/04/23 02/04/23 Metoprolol Tartrate [Lopressor] 12.5 mg PO BID 02/04/23 02/04/23 Pantoprazole [Protonix] 40 mg PO DAILY 02/04/23 02/04/23 Sennosides-Docusate Sodium 2 tab PO HS PRN 02/04/23 02/04/23 [Senokot-S] amLODIPine [Norvasc] 2.5 mg PO HS 02/04/23 02/04/23 Previous Rx's Medication Instructions Recorded Acetaminophen Tab [Tylenol] 650 mg PO Q4HR PRN tab 01/20/23 Aspirin 81 mg PO DAILY #0 01/20/23 Clopidogrel [Plavix] 75 mg PO DAILY #30 tab 01/20/23 Empagliflozin [Jardiance] 10 mg PO DAILY #30 tablet 01/20/23 Ferrous Sulfate [Iron (65 MG 325 mg PO BID-W/MEALS #30 tab 01/20/23 Elemental)] Midodrine [ProAmatine] 5 mg PO AC-TID #90 tab 01/20/23 Allergies Allergy/AdvReac Type Severity Reaction Status Date / Time No Known Allergies Allergy Verified 02/04/23 18:42 Review of Systems ROS Statement: Those systems with pertinent positive or pertinent negative responses have been documented in the HPI. Review of Systems: CONST: Denies fever EYES: Denies blurry vision ENT: Denies nasal congestion C/V: Denies Chest pain RESP: Denies shortness of breath GI: Denies abdominal pain : Denies dysuria SKIN: Denies rash. MSK: Denies joint pain. NEURO: Endorses fatigue, weakness ROS Other: All systems not noted in ROS Statement are negative. Past Medical History Past Medical History: Asthma, Coronary Artery Disease (CAD), Cancer, Chest Pain / Angina, Diabetes Mellitus, Hyperlipidemia, Hypertension Additional Past Medical History / Comment(s): MELENOMA, HIATAL HERNIA, PROSTATE CANCER (ON ORAL CHEMO), covid approximated 6 months ago History of Any Multi-Drug Resistant Organisms: None Reported Past Surgical History: Heart Catheterization, Heart Catheterization With Stent Additional Past Surgical History / Comment(s): NASAL POLYPS REMOVED. CORIE. CATARACTS REMOVED WITH LENS IMPLANTS Past Anesthesia/Blood Transfusion Reactions: No Reported Reaction Date of Last Stent Placement:: JUN 2008 Past Psychological History: No Psychological Hx Reported Smoking Status: Never smoker Past Alcohol Use History: None Reported, Rare Past Drug Use History: None Reported - Past Family History Mother Family Medical History: Congestive Heart Failure (CHF), Diabetes Mellitus Father Family Medical History: Cancer Additional Family Medical History / Comment(s): lung cancer Brother(s) Family Medical History: Coronary Artery Disease (CAD) Additional Family Medical History / Comment(s): Diagnoses CAD at early age with subsequent CABG General Exam - General Exam Comments Initial Comments: General: Appears in no acute distress. HEAD: Normal with no signs of head trauma. EYES: PERRLA, EOMI, conjunctiva normal, no discharge. ENT: Hearing grossly intact, normal oropharynx. RESPIRATORY: Clear breath sounds bilaterally. No wheezes, rales, or rhonchi. C/V: Regular rate and rhythm. S1 and S2 auscultated, no edema, peripheral pulses 2+ and intact throughout ABD: Abd is soft, nontender, nondistended EXT: Normal range of motion, no obvious deformity SKIN: No rashes or lesions observed on exposed skin. NEURO: Alert and oriented x 4. Cranial nerves II-XII intact. No focal sensory or strength deficits. Limitations: no limitations Course Vital Signs 02/04/23 02/04/23 15:02 16:18 Temperature 98.2 F Pulse Rate 66 63 Respiratory 22 Rate Blood Pressure 109/71 100/67 O2 Sat by Pulse 98 98 Oximetry Medical Decision Making - Medical Decision Making Was pt. sent in by a medical professional or institution (, PA, CAPTAIN ASSISTANT, urgent care, hospital, or halfway...) When possible be specific @ -No Did you speak to anyone other than the patient for history (EMS, parent, family, police, friend...)? What history was obtained from this source @ -No Did you review nursing and triage notes (agree or disagree)? Why? @ -I reviewed and agree with nursing and triage notes, except that the patient is not complaining of shortness of breath but more fatigue and weakness Were old charts reviewed (outside hosp., previous admission, EMS record, old EKG, old radiological studies, urgent care reports/EKG's, halfway records)? Report findings @ -Old Charts reviewed. Differential Diagnosis (chest pain, altered mental status, abdominal pain women, abdominal pain men, vaginal bleeding, weakness, fever, dyspnea, syncope, headache, dizziness, GI bleed, back pain, seizure, CVA, palpatations, mental health, musculoskeletal)? @ -Differential Weakness: Hypoglycemia, shock, sepsis, hyponatremia, anemia, infection, TN, ETOH, adverse medicine reaction, overdose, stroke, this is not meant to be an all-inclusive list. EKG interpreted by me (3pts min.). @ -As above X-rays interpreted by me (1pt min.). @ -Chest x-ray reveals bilateral pleural effusions as well as cardiomegaly. CT interpreted by me (1pt min.). @ -None done U/S interpreted by me (1pt. min.). @ -None done What testing was considered but not performed or refused? (CT, X-rays, U/S, labs)? Why? @ -None What meds were considered but not given or refused? Why? @ -None Did you discuss the management of the patient with other professionals (professionals i.e. , PA, CAPTAIN ASSISTANT, lab, RT, psych nurse, social work case manager, socially responsible investment adviser, teacher, weapons electrical engineering officer, spring encaser)? Give summary @ -Discussed with the admitting team, Dr. Hermosillo who accepted the patient. Discussed with AZAM Weathers of cardiothoracic surgery was in agreement with the plan for admission. Septic consult. Was smoking cessation discussed for >3mins.? @ -No Was critical care preformed (if so, how long)? @ -No Were there social determinants of health that impacted care today? How? (Homelessness, low income, unemployed, alcoholism, drug addiction, transportation, low edu. Level, literacy, decrease access to med. care, custodial, rehab)? @ -No Was there de-escalation of care discussed even if they declined (Discuss DNR or withdrawal of care, Hospice)? DNR status @ -No What co-morbidities impacted this encounter? (DM, HTN, Smoking, COPD, CAD, Cancer, CVA, ARF, Chemo, Hep., AIDS, mental health diagnosis, sleep apnea, morbid obesity)? @ -Recent CABG Was patient admitted / discharged? Hospital course, mention meds given and route, prescriptions, significant lab abnormalities, going to OR and other pertinent info. @ -Based on the patient's presentation and physical exam, I'm concerned for weakness for the patient. Had recent CABG. Has no other symptoms at this time other than generalized fatigue. We will obtain cardiac labs. We'll also obtain infectious labs. Patient was in agreement this plan. He will be given a small IV fluid bolus. Vital signs are within acceptable limits. EKG showed no signs of ischemia. Patient has bilateral pleural effusions with cardiomegaly on chest x-ray.Patient's labs remarkable for chronic anemia which is unchanged from baseline. Lactic acidosis of 2.9. Troponin undetectable. Remainder the patient's labs unremarkable. Discussed results with patient. I would like to admit him to the hospital. He was in agreement with this plan. I spoke with Oral Pitts of cardiothoracic surgery who was in agreement with the plan and recommended observation admission. We also obtain an echo. Recommended cardiology consult which was placed. I spoke with the admitting team, Dr. Hermosillo of [facility] who accepted the admission. She was also in agreement this plan. Ambulatory pulse ox was completed and patient had minimal desaturations to 94% to 95%. At rest he is 95-96%. Undiagnosed new problem with uncertain prognosis? @ -No Drug Therapy requiring intensive monitoring for toxicity (Heparin, Nitro, Insulin, Cardizem)? @ -No Were any procedures done? @ -No Diagnosis/symptom? @ -Fatigue, history of CABG Acute, or Chronic, or Acute on Chronic? @ -Acute Uncomplicated (without systemic symptoms) or Complicated (systemic symptoms)? @ -Complicated Side effects of treatment? @ -none Exacerbation, Progression, or Severe Exacerbation] @ -no Poses a threat to life or bodily function? @ -Possibly, yes Diagnosis/symptom? @ -Lactic acidosis Acute, or Chronic, or Acute on Chronic? @ -Acute Uncomplicated (without systemic symptoms) or Complicated (systemic symptoms)? @ -Uncomplicated Side effects of treatment? @ -none Exacerbation, Progression, or Severe Exacerbation] @ -no Poses a threat to life or bodily function? @ -no - Lab Data Result diagrams: 02/04/23 15:24 02/04/23 15:24 Lab Results 02/04/23 02/04/23 02/04/23 Range/Units 15:24 15:24 15:24 WBC 5.4 (3.8-10.6) k/uL RBC 3.26 L (4.30-5.90) m/uL Hgb 9.8 L (13.0-17.5) gm/dL Hct 30.7 L (39.0-53.0) % MCV 94.1 (80.0-100.0) fL MCH 30.0 (25.0-35.0) pg MCHC 31.9 (31.0-37.0) g/dL RDW 16.3 H (11.5-15.5) % Plt Count 478 H (150-450) k/uL MPV 7.0 Neutrophils % 59 % Lymphocytes % 14 % Monocytes % 10 % Eosinophils % 13 % Basophils % 0 % Neutrophils # 3.2 (1.3-7.7) k/uL Lymphocytes # 0.7 L (1.0-4.8) k/uL Monocytes # 0.5 (0-1.0) k/uL Eosinophils # 0.7 (0-0.7) k/uL Basophils # 0.0 (0-0.2) k/uL Hypochromasia Moderate Anisocytosis Slight PT 10.3 (9.0-12.0) sec INR 1.0 (<1.2) APTT 23.4 (22.0-30.0) sec Sodium (137-145) mmol/L Potassium (3.5-5.1) mmol/L Chloride (98-107) mmol/L Carbon Dioxide (22-30) mmol/L Anion Gap mmol/L BUN (9-20) mg/dL Creatinine (0.66-1.25) mg/dL Est GFR (CKD-EPI)AfAm (>60 ml/min/1.73 sqM) Est GFR (CKD-EPI)NonAf (>60 ml/min/1.73 sqM) Glucose (74-99) mg/dL Lactic Ac Sepsis Rflx Plasma Lactic Acid Jacques (0.7-2.0) mmol/L Calcium (8.4-10.2) mg/dL Magnesium (1.6-2.3) mg/dL Total Bilirubin (0.2-1.3) mg/dL AST (17-59) U/L ALT (4-49) U/L Alkaline Phosphatase (38-126) U/L Troponin I (0.000-0.034) ng/mL NT-Pro-B Natriuret Pep pg/mL Total Protein (6.3-8.2) g/dL Albumin (3.5-5.0) g/dL Urine Color Colorless Urine Appearance Clear (Clear) Urine pH 5.0 (5.0-8.0) Ur Specific [place] 1.012 (1.001-1.035) Urine Protein Negative (Negative) Urine Glucose (UA) 4+ H (Negative) Urine Ketones Negative (Negative) Urine Blood Negative (Negative) Urine Nitrite Negative (Negative) Urine Bilirubin Negative (Negative) Urine Urobilinogen <2.0 (<2.0) mg/dL Ur Leukocyte Esterase Negative (Negative) Influenza Type A (PCR) (Not Detectd) Influenza Type B (PCR) (Not Detectd) RSV (PCR) (Not Detectd) SARS-CoV-2 (PCR) (Not Detectd) 02/04/23 02/04/23 02/04/23 Range/Units 15:24 15:24 15:24 WBC (3.8-10.6) k/uL RBC (4.30-5.90) m/uL Hgb (13.0-17.5) gm/dL Hct (39.0-53.0) % MCV (80.0-100.0) fL MCH (25.0-35.0) pg MCHC (31.0-37.0) g/dL RDW (11.5-15.5) % Plt Count (150-450) k/uL MPV Neutrophils % % Lymphocytes % % Monocytes % % Eosinophils % % Basophils % % Neutrophils # (1.3-7.7) k/uL Lymphocytes # (1.0-4.8) k/uL Monocytes # (0-1.0) k/uL Eosinophils # (0-0.7) k/uL Basophils # (0-0.2) k/uL Hypochromasia Anisocytosis PT (9.0-12.0) sec INR (<1.2) APTT (22.0-30.0) sec Sodium 137 (137-145) mmol/L Potassium 4.4 (3.5-5.1) mmol/L Chloride 106 (98-107) mmol/L Carbon Dioxide 19 L (22-30) mmol/L Anion Gap 12 mmol/L BUN 15 (9-20) mg/dL Creatinine 0.70 (0.66-1.25) mg/dL Est GFR (CKD-EPI)AfAm >90 (>60 ml/min/1.73 sqM) Est GFR (CKD-EPI)NonAf >90 (>60 ml/min/1.73 sqM) Glucose 120 H (74-99) mg/dL Lactic Ac Sepsis Rflx Plasma Lactic Acid Jacques 2.9 H* (0.7-2.0) mmol/L Calcium 9.3 (8.4-10.2) mg/dL Magnesium 2.1 (1.6-2.3) mg/dL Total Bilirubin 0.3 (0.2-1.3) mg/dL AST 21 (17-59) U/L ALT 22 (4-49) U/L Alkaline Phosphatase 66 (38-126) U/L Troponin I <0.012 (0.000-0.034) ng/mL NT-Pro-B Natriuret Pep 504 pg/mL Total Protein 6.4 (6.3-8.2) g/dL Albumin 3.9 (3.5-5.0) g/dL Urine Color Urine Appearance (Clear) Urine pH (5.0-8.0) Ur Specific [place] (1.001-1.035) Urine Protein (Negative) Urine Glucose (UA) (Negative) Urine Ketones (Negative) Urine Blood (Negative) Urine Nitrite (Negative) Urine Bilirubin (Negative) Urine Urobilinogen (<2.0) mg/dL Ur Leukocyte Esterase (Negative) Influenza Type A (PCR) (Not Detectd) Influenza Type B (PCR) (Not Detectd) RSV (PCR) (Not Detectd) SARS-CoV-2 (PCR) (Not Detectd) 02/04/23 02/04/23 Range/Units 15:24 17:15 WBC (3.8-10.6) k/uL RBC (4.30-5.90) m/uL Hgb (13.0-17.5) gm/dL Hct (39.0-53.0) % MCV (80.0-100.0) fL MCH (25.0-35.0) pg MCHC (31.0-37.0) g/dL RDW (11.5-15.5) % Plt Count (150-450) k/uL MPV Neutrophils % % Lymphocytes % % Monocytes % % Eosinophils % % Basophils % % Neutrophils # (1.3-7.7) k/uL Lymphocytes # (1.0-4.8) k/uL Monocytes # (0-1.0) k/uL Eosinophils # (0-0.7) k/uL Basophils # (0-0.2) k/uL Hypochromasia Anisocytosis PT (9.0-12.0) sec INR (<1.2) APTT (22.0-30.0) sec Sodium (137-145) mmol/L Potassium (3.5-5.1) mmol/L Chloride (98-107) mmol/L Carbon Dioxide (22-30) mmol/L Anion Gap mmol/L BUN (9-20) mg/dL Creatinine (0.66-1.25) mg/dL Est GFR (CKD-EPI)AfAm (>60 ml/min/1.73 sqM) Est GFR (CKD-EPI)NonAf (>60 ml/min/1.73 sqM) Glucose (74-99) mg/dL Lactic Ac Sepsis Rflx Y Plasma Lactic Acid Jacques (0.7-2.0) mmol/L Calcium (8.4-10.2) mg/dL Magnesium (1.6-2.3) mg/dL Total Bilirubin (0.2-1.3) mg/dL AST (17-59) U/L ALT (4-49) U/L Alkaline Phosphatase (38-126) U/L Troponin I (0.000-0.034) ng/mL NT-Pro-B Natriuret Pep pg/mL Total Protein (6.3-8.2) g/dL Albumin (3.5-5.0) g/dL Urine Color Urine Appearance (Clear) Urine pH (5.0-8.0) Ur Specific [place] (1.001-1.035) Urine Protein (Negative) Urine Glucose (UA) (Negative) Urine Ketones (Negative) Urine Blood (Negative) Urine Nitrite (Negative) Urine Bilirubin (Negative) Urine Urobilinogen (<2.0) mg/dL Ur Leukocyte Esterase (Negative) Influenza Type A (PCR) Not Detected (Not Detectd) Influenza Type B (PCR) Not Detected (Not Detectd) RSV (PCR) Not Detected (Not Detectd) SARS-CoV-2 (PCR) Not Detected (Not Detectd) - EKG Data -: EKG Interpreted by Me EKG Comments: 12-lead Electrocardiogram Interpretation Note EKG was reviewed and interpreted by myself. 12-lead ECG performed at 1514 is interpreted by me as revealing normal sinus rhythm at a rate of 66 beats per minute. [place] is normal. Patient has first-degree AV block with a RI interval of 235 ms, QRS duration is 111 ms, QTc is 425 ms.. There were no ST or T wave abnormalities to suggest myocardial ischemia or injury. R wave progression across the precordium was satisfactory. By my interpretation this EKG is non- diagnostic for acute ischemia. Disposition Clinical Impression: Fatigue, History of coronary artery bypass graft, Lactic acidosis Disposition: ADMITTED IP TO THIS HOSP Condition: Undetermined Time of Disposition: 18:05
[2023-02-04 17:03] LABS: ALT 22 U/L (4-49); AST 21 U/L (17-59); African American GFR (CKD) >90 (>60 ml/min/1.73 sqM); Albumin 3.9 g/dL (3.5-5.0); Alkaline Phosphatase 66 U/L (38-126); Anion Gap 12 mmol/L; Blood Urea Nitrogen 15 mg/dL (9-20); Calcium 9.3 mg/dL (8.4-10.2); Carbon Dioxide 19 mmol/L (22-30); Chloride 106 mmol/L (98-107); Glucose 120 mg/dL (74-99); Magnesium 2.1 mg/dL (1.6-2.3); Non-African American GFR(CKD) >90 (>60 ml/min/1.73 sqM); Potassium 4.4 mmol/L (3.5-5.1); Sodium 137 mmol/L (137-145); Total Bilirubin 0.3 mg/dL (0.2-1.3); Total Protein 6.4 g/dL (6.3-8.2)
[2023-02-04 17:07] LABS: NT-Pro-B-Type Natriuretic Pept 504 pg/mL
[2023-02-04 17:22] LABS: Partial Thromboplastin Time 23.4 sec (22.0-30.0); Prothrombin Time 10.3 sec (9.0-12.0)
[2023-02-04 17:51] LABS: Appearance,Urine Clear (Clear); Bilirubin,Urine Negative (Negative); Blood,Urine Negative (Negative); Color,Urine Colorless; Glucose,Urine (UA) 4+ (Negative); Ketones,Urine Negative (Negative); Leukocyte Esterase,Urine Negative (Negative); Nitrite,Urine Negative (Negative); Protein,Urine Negative (Negative); Specific Gravity,Urine 1.012 (1.001-1.035); Urobilinogen,Urine <2.0 mg/dL (<2.0)
[2023-02-04] MEDS ORDERED: NALOXONE 0.4 MG/ML 1 ML VIAL IV PRN (18:20)
[2023-02-04] MEDS ORDERED: ALBUTEROL NEBULIZED 2.5 MG/3 ML INHALATION PRN (23:13)
[2023-02-04] MEDS ORDERED: amLODIPine 2.5 MG TAB PO SCH (23:15)
[2023-02-04] MEDS ORDERED: ATORVASTATIN 80 MG TAB PO SCH (23:15)
[2023-02-04] MEDS: METOPROLOL TARTRATE 12.5 MG TAB PO SCH (23:35)
[2023-02-04] MEDS: HEPARIN SODIUM,PORCINE 5,000 UNIT/ML 1 ML VIAL SQ SCH (23:36)
--- NOTE | 2023-02-05 00:02 | P.HPIM ---
History of Present Illness H&P Date: 02/04/23 Patient is a 72-year-old male with a PMH of recent CABG on 01/14/23, type II DM, hypertension, hyperlipidemia, COPD, prostate cancer currently on androgen inhibitors, who presents to the emergency room with complaints of fatigue and exertional dyspnea. Patient reports that over the past 1 week, he has experienced gradual worsening generalized fatigue as well as dyspnea predominantly with exertion. He checked his ambulatory SpO2 at home which was 87% and confirmed by her visiting nurse, which prompted him to come to the emergency room. He denied experiencing chest discomfort, nausea, vomiting, diaphoresis, or palpitations. He also denied orthopnea or PND. Does report mild right lower extremity edema over the past 2-3 weeks which has now improved after using compression stockings. Does report some loose stools over the past few days, nonbloody without melena. Reports mild nonproductive cough, unchanged without fever or chills. In the emergency room, a chest x-ray revealed cardiomegaly with pleural effusions left greater than right. EKG revealed sinus rhythm with first-degree AV block at 66 bpm with T-wave flattening in leads 2, 3, and aVF, new when compared to EKGs from 01/21/23. Laboratory evaluation revealed hemoglobin 9.8 (at baseline), lactic acid 2.9, unremarkable UA, and unremarkable viral panel. The patient's SpO2 upon arrival in the emergency room was 98% on room air. ED documentation reviewed and case discussed with ED provider. Review of systems: Pertinent positives and negatives as discussed in HPI, a complete review of systems was performed and all other systems are negative. Physical examination: Vital signs reviewed General: non toxic, no distress, appears at stated age, normal weight Derm: no unusual rashes/lesions, warm Head: atraumatic, normocephalic, symmetric Eyes: EOMI, no lid lag, anicteric sclera, pupils equal round reactive to light ENT: Nose and ears atraumatic Neck: No cervical lymphadenopathy, trachea midline, supple Mouth: no lip lesion, mucus membranes moist Cardiovascular: S1S2 reg, no murmur, positive dorsalis pedis pulse bilateral, no edema, sternal incision healing well Lungs: CTA bilateral, no rhonchi, no rales, no accessory muscle use Abdominal: soft, nontender to palpation, no guarding Ext: muscle strength 5 out of 5 in all 4 extremities grossly, no gross muscle atrophy, no contractures, Neuro: CN II-XI grossly intact, no gross focal neuro deficits Psych: Alert, oriented, appropriate affect Assessment: Generalized weakness and exertional dyspnea, rule out PE in setting of unilateral lower extremity edema and hypoxia, low suspicion for CHF exacerbation Lactic acidosis Chronic conditions: Recent CABG, type II DM, hypertension, hyperlipidemia, COPD, prostate cancer Imaging: In the emergency room, a chest x-ray revealed cardiomegaly with pleural effusions left greater than right. EKG revealed sinus rhythm with first-degree AV block at 66 bpm with T-wave flattening in leads 2, 3, and aVF, new when compared to EKGs from 01/21/23. Data Review: Laboratory evaluation revealed hemoglobin 9.8 (at baseline), lactic acid 2.9, unremarkable UA, and unremarkable viral panel. Plan: Obtain CT chest angiogram Cardiology consulted Obtain echocardiogram Cardiac monitoring Monitor lactic acid levels for resolution Insulin sliding scale blood glucose monitoring Continue the following home medications: -Norvasc 2.5 mg by mouth daily at bedtime -Aspirin 81 mg by mouth daily -Lipitor 80 mg by mouth daily at bedtime -Qvar inhaler -Plavix 75 mg by mouth daily -Lopressor 12.5 mg by mouth twice a day -Midodrin 5 mg by mouth 3 times a day -Singular 10 mg by mouth daily at bedtime -Protonix 40 mg by mouth daily -Flomax 0.4 mg by mouth daily DVT prophylaxis: Heparin subcu The patient is admitted with an anticipated than 2 midnight stay for evaluation of dyspnea CODE STATUS: Full Code Discussed with: Patient Anticipated discharge place: Home Past Medical History Past Medical History: Asthma, Coronary Artery Disease (CAD), Cancer, Chest Pain / Angina, Diabetes Mellitus, Hyperlipidemia, Hypertension Additional Past Medical History / Comment(s): MELENOMA, HIATAL HERNIA, PROSTATE CANCER (ON ORAL CHEMO), covid approximated 6 months ago History of Any Multi-Drug Resistant Organisms: None Reported Past Surgical History: Heart Catheterization, Heart Catheterization With Stent Additional Past Surgical History / Comment(s): NASAL POLYPS REMOVED. CORIE. CATARACTS REMOVED WITH LENS IMPLANTS Past Anesthesia/Blood Transfusion Reactions: No Reported Reaction Date of Last Stent Placement:: JUN 2008 Past Psychological History: No Psychological Hx Reported Smoking Status: Never smoker Past Alcohol Use History: None Reported, Rare Past Drug Use History: None Reported - Past Family History Mother Family Medical History: Congestive Heart Failure (CHF), Diabetes Mellitus Father Family Medical History: Cancer Additional Family Medical History / Comment(s): lung cancer Brother(s) Family Medical History: Coronary Artery Disease (CAD) Additional Family Medical History / Comment(s): Diagnoses CAD at early age with subsequent CABG Medications and Allergies Home Medications Medication Instructions Recorded Confirmed Type Multivitamin [Men's Multi-Vitamin] 1 tab PO DAILY 06/28/16 02/04/23 History Tamsulosin [Flomax] 0.4 mg PO DAILY 12/22/21 02/04/23 History Albuterol Sulfate [Proair 1 puff INHALATION Q4-6H PRN 01/10/23 02/04/23 History Respiclick] Ascorbic Acid [Vitamin C] 500 mg PO DAILY 01/10/23 02/04/23 History Atorvastatin [Lipitor] 80 mg PO HS 01/10/23 02/04/23 History Beclomethasone Dipropionate [Qvar 2 puff INHALATION RT-BID 01/10/23 02/04/23 History 80mcg Redihaler] Cholecalciferol [Vitamin D3 (25 50 mcg PO DAILY 01/10/23 02/04/23 History Mcg = 1000 Iu)] Cranberry Fruit Extract [Cranberry] 4,200 mg PO DAILY 01/10/23 02/04/23 History Enzalutamide [Xtandi] 160 mg PO HS 01/10/23 02/04/23 History Lansoprazole [Prevacid] 30 mg PO DAILY 01/10/23 02/04/23 History Montelukast [Singulair] 10 mg PO HS 01/10/23 02/04/23 History sitaGLIPtin PHOS/metFORMIN HCL 1 tab PO DAILY 01/10/23 02/04/23 History [Janumet 50-1,000 mg Tablet] Acetaminophen Tab [Tylenol] 650 mg PO Q4HR PRN tab 01/20/23 02/04/23 Rx Aspirin 81 mg PO DAILY #0 01/20/23 02/04/23 Rx Clopidogrel [Plavix] 75 mg PO DAILY #30 tab 01/20/23 02/04/23 Rx Empagliflozin [Jardiance] 10 mg PO DAILY #30 tablet 01/20/23 02/04/23 Rx Ferrous Sulfate [Iron (65 MG 325 mg PO BID-W/MEALS #30 tab 01/20/23 02/04/23 Rx Elemental)] Midodrine [ProAmatine] 5 mg PO AC-TID #90 tab 01/20/23 02/04/23 Rx Cranberry 4200mg 4,200 mg PO HS 02/04/23 02/04/23 History Metoprolol Tartrate [Lopressor] 12.5 mg PO BID 02/04/23 02/04/23 History Pantoprazole [Protonix] 40 mg PO DAILY 02/04/23 02/04/23 History Sennosides-Docusate Sodium 2 tab PO HS PRN 02/04/23 02/04/23 History [Senokot-S] amLODIPine [Norvasc] 2.5 mg PO HS 02/04/23 02/04/23 History Allergies Allergy/AdvReac Type Severity Reaction Status Date / Time No Known Allergies Allergy Verified 02/04/23 18:42 Physical Exam Vitals: Vital Signs Temp Pulse Pulse Resp BP BP Pulse Ox 02/04/23 20:00 70 02/04/23 19:45 97.6 F 70 16 138/77 97 02/04/23 16:18 63 100/67 98 02/04/23 15:02 98.2 F 66 22 109/71 98 Intake and Output 02/04/23 02/04/23 02/05/23 14:59 22:59 06:59 Other: Voiding Method Toilet # Voids 1 Weight 88.451 kg Results CBC & Chem 7: 02/04/23 15:24 02/04/23 15:24 Labs: Abnormal Lab Results - Last 24 Hours (Table) 02/04/23 02/04/23 02/04/23 Range/Units 15:24 15:24 15:24 RBC 3.26 L (4.30-5.90) m/uL Hgb 9.8 L (13.0-17.5) gm/dL Hct 30.7 L (39.0-53.0) % RDW 16.3 H (11.5-15.5) % Plt Count 478 H (150-450) k/uL Lymphocytes # 0.7 L (1.0-4.8) k/uL Carbon Dioxide 19 L (22-30) mmol/L Glucose 120 H (74-99) mg/dL Plasma Lactic Acid Jacques (0.7-2.0) mmol/L Urine Glucose (UA) 4+ H (Negative) 02/04/23 02/04/23 Range/Units 15:24 19:47 RBC (4.30-5.90) m/uL Hgb (13.0-17.5) gm/dL Hct (39.0-53.0) % RDW (11.5-15.5) % Plt Count (150-450) k/uL Lymphocytes # (1.0-4.8) k/uL Carbon Dioxide (22-30) mmol/L Glucose (74-99) mg/dL Plasma Lactic Acid Jacques 2.9 H* 2.6 H* (0.7-2.0) mmol/L Urine Glucose (UA) (Negative) Thrombosis Risk Factor Assmnt - Choose All That Apply Any of the Below Risk Factors Present?: Yes Each Factor Represents 1 point: History of prior major surgery (<1month), Obesity (BMI >25) Other Risk Factors: Yes Each Risk Factor Represents 2 Points: Age 61-74 years Thrombosis Risk Factor Assessment Total Risk Factor Score: 4 Thrombosis Risk Factor Assessment Level: Moderate Risk
[2023-02-05] MEDS ORDERED: ALPRAZolam 0.25 MG TAB PO STA (00:06)
--- NOTE | 2023-02-05 02:43 | CT ---
EXAM: CT Angiography Chest With Intravenous Contrast CLINICAL HISTORY: ITS.REASON CT Reason: r/o PE, SOB, exertional hypoxia, unilateral LE swe TECHNIQUE: Axial computed tomographic angiography images of the chest with intravenous contrast. CTDI is 40.78 mGy and DLP is 630.6 mGy-cm. This CT exam was performed using one or more of the following dose reduction techniques: automated exposure control, adjustment of the mA and/or kV according to patient size, and/or use of iterative reconstruction technique. MIP reconstructed images were created and reviewed. COMPARISON: 02/26/2019 FINDINGS: Pulmonary arteries: Unremarkable. No pulmonary embolism. Aorta: No acute findings. No thoracic aortic aneurysm. Lungs: Bilateral basilar atelectasis and. No mass. Pleural space: Small right pleural effusion. Moderate left pleural effusion. No pneumothorax. Heart: Left atrial appendage clip placement. Coronary artery bypass graft. No significant pericardial effusion. No evidence of RV dysfunction. Mediastinum: Anterior cardiophrenic mediastinal lymph nodes. Bones/joints: Prior median sternotomy. No acute fracture. No dislocation. Soft tissues: Left axillary surgical clips. Lymph nodes: Unremarkable. No enlarged lymph nodes. Kidneys and ureters: Left renal cortical cyst partially included. IMPRESSION: 1. No pulmonary embolism seen. 2. Bilateral pleural effusions and atelectasis.
[2023-02-05 06:04] LABS: Glucose,Whole Blood 128 mg/dL (70-110)
[2023-02-05] MEDS ORDERED: FUROSEMIDE 10 MG/ML 2 ML VIAL IV STA (06:20)
--- NOTE | 2023-02-05 06:21 | P.CRDCN ---
History of Present Illness Consult date: 02/05/23 Chief complaint: Shortness of breath History of present illness: This is a 72-year-old gentleman with a past medical history significant for CAD status post CABG with MAYA to LAD and sequential to diagonal as well as radial artery to OM as well as hypertension and dyslipidemia area patient underwent the surgery in December 2022. He was seen yesterday by Dr. Bagley and he was short of breath and pale. He was referred to come to the emergency department. The patient denies any chest pain or chest discomfort and currently he stated that the shortness of breath has improved. His oxygen saturation was low in the office yesterday. No lower extremity edema. No dizziness or lightheadedness and no feeling of heart racing or fluttering and no presyncope or syncope. He underwent a workup here including EKG showing sinus mechanism. He also underwent also NT proBNP and that came in to be around 500. The chest x-ray showed bilateral pleural effusion. The computed tomography scan showed no pulmonary embolism but also bilateral pleural effusion. The patient was referred for further evaluation and currently he was admitted on the observation unit. Hemoglobin is stable. Kidney function is stable as well. On examination he does have bilateral rhonchi. No edema noted. He possibly has on examination also rubs Assessment Shortness of breath A bilateral pleural effusion CAD status post CABG as described above Multiple comorbid conditions Plan Echo still pending Give the patient 20 mg of Lasix IV once Monitor the patient for additional 24 hours Further recommendation to follow Past Medical History Past Medical History: Asthma, Coronary Artery Disease (CAD), Cancer, Chest Pain / Angina, Diabetes Mellitus, Hyperlipidemia, Hypertension Additional Past Medical History / Comment(s): MELENOMA, HIATAL HERNIA, PROSTATE CANCER (ON ORAL CHEMO), covid approximated 6 months ago History of Any Multi-Drug Resistant Organisms: None Reported Past Surgical History: Heart Catheterization, Heart Catheterization With Stent Additional Past Surgical History / Comment(s): NASAL POLYPS REMOVED. CORIE. CATARACTS REMOVED WITH LENS IMPLANTS Past Anesthesia/Blood Transfusion Reactions: No Reported Reaction Date of Last Stent Placement:: JUN 2008 Past Psychological History: No Psychological Hx Reported Smoking Status: Never smoker Past Alcohol Use History: None Reported, Rare Past Drug Use History: None Reported - Past Family History Mother Family Medical History: Congestive Heart Failure (CHF), Diabetes Mellitus Father Family Medical History: Cancer Additional Family Medical History / Comment(s): lung cancer Brother(s) Family Medical History: Coronary Artery Disease (CAD) Additional Family Medical History / Comment(s): Diagnoses CAD at early age with subsequent CABG Medications and Allergies Home Medications Medication Instructions Recorded Confirmed Type Multivitamin [Men's Multi-Vitamin] 1 tab PO DAILY 06/28/16 02/04/23 History Tamsulosin [Flomax] 0.4 mg PO DAILY 12/22/21 02/04/23 History Albuterol Sulfate [Proair 1 puff INHALATION Q4-6H PRN 01/10/23 02/04/23 History Respiclick] Ascorbic Acid [Vitamin C] 500 mg PO DAILY 01/10/23 02/04/23 History Atorvastatin [Lipitor] 80 mg PO HS 01/10/23 02/04/23 History Beclomethasone Dipropionate [Qvar 2 puff INHALATION RT-BID 01/10/23 02/04/23 History 80mcg Redihaler] Cholecalciferol [Vitamin D3 (25 50 mcg PO DAILY 01/10/23 02/04/23 History Mcg = 1000 Iu)] Cranberry Fruit Extract [Cranberry] 4,200 mg PO DAILY 01/10/23 02/04/23 History Enzalutamide [Xtandi] 160 mg PO HS 01/10/23 02/04/23 History Lansoprazole [Prevacid] 30 mg PO DAILY 01/10/23 02/04/23 History Montelukast [Singulair] 10 mg PO HS 01/10/23 02/04/23 History sitaGLIPtin PHOS/metFORMIN HCL 1 tab PO DAILY 01/10/23 02/04/23 History [Janumet 50-1,000 mg Tablet] Acetaminophen Tab [Tylenol] 650 mg PO Q4HR PRN tab 01/20/23 02/04/23 Rx Aspirin 81 mg PO DAILY #0 01/20/23 02/04/23 Rx Clopidogrel [Plavix] 75 mg PO DAILY #30 tab 01/20/23 02/04/23 Rx Empagliflozin [Jardiance] 10 mg PO DAILY #30 tablet 01/20/23 02/04/23 Rx Ferrous Sulfate [Iron (65 MG 325 mg PO BID-W/MEALS #30 tab 01/20/23 02/04/23 Rx Elemental)] Midodrine [ProAmatine] 5 mg PO AC-TID #90 tab 01/20/23 02/04/23 Rx Cranberry 4200mg 4,200 mg PO HS 02/04/23 02/04/23 History Metoprolol Tartrate [Lopressor] 12.5 mg PO BID 02/04/23 02/04/23 History Pantoprazole [Protonix] 40 mg PO DAILY 02/04/23 02/04/23 History Sennosides-Docusate Sodium 2 tab PO HS PRN 02/04/23 02/04/23 History [Senokot-S] amLODIPine [Norvasc] 2.5 mg PO HS 02/04/23 02/04/23 History Allergies Allergy/AdvReac Type Severity Reaction Status Date / Time No Known Allergies Allergy Verified 02/04/23 18:42 Physical Exam Vitals: Vital Signs Temp Pulse Pulse Resp BP BP Pulse Ox 02/05/23 00:48 97.7 F 72 16 118/70 98 02/04/23 20:00 70 02/04/23 19:45 97.6 F 70 16 138/77 97 02/04/23 16:18 63 100/67 98 02/04/23 15:02 98.2 F 66 22 109/71 98 Intake and Output 02/04/23 02/04/23 02/05/23 14:59 22:59 06:59 Other: Voiding Method Toilet Toilet # Voids 1 3 Weight 88.451 kg Results 02/04/23 15:24 02/04/23 15:24 Cardiac Enzymes 02/04/23 02/04/23 Range/Units 15:24 15:24 AST 21 (17-59) U/L Troponin I <0.012 (0.000-0.034) ng/mL Coagulation 02/04/23 Range/Units 15:24 PT 10.3 (9.0-12.0) sec APTT 23.4 (22.0-30.0) sec CBC 02/04/23 Range/Units 15:24 WBC 5.4 (3.8-10.6) k/uL RBC 3.26 L (4.30-5.90) m/uL Hgb 9.8 L (13.0-17.5) gm/dL Hct 30.7 L (39.0-53.0) % Plt Count 478 H (150-450) k/uL Comprehensive Metabolic Panel 02/04/23 Range/Units 15:24 Sodium 137 (137-145) mmol/L Potassium 4.4 (3.5-5.1) mmol/L Chloride 106 (98-107) mmol/L Carbon Dioxide 19 L (22-30) mmol/L BUN 15 (9-20) mg/dL Creatinine 0.70 (0.66-1.25) mg/dL Glucose 120 H (74-99) mg/dL Calcium 9.3 (8.4-10.2) mg/dL AST 21 (17-59) U/L ALT 22 (4-49) U/L Alkaline Phosphatase 66 (38-126) U/L Total Protein 6.4 (6.3-8.2) g/dL Albumin 3.9 (3.5-5.0) g/dL Current Medications Generic Name Dose Route Start Last Admin Trade Name Freq PRN Reason Stop Dose Admin Albuterol Sulfate 2.5 mg 02/04/23 23:13 Albuterol Nebulized 2.5 Mg/3 Ml INHALATION Q4H PRN Dyspnea Amlodipine Besylate 2.5 mg 02/04/23 23:15 02/04/23 23:36 Amlodipine 2.5 Mg Tab PO 2.5 mg HS ANDREA Administration Aspirin 81 mg 02/05/23 09:00 Aspirin 81 Mg PO DAILY [facility] Atorvastatin Calcium 80 mg 02/04/23 23:15 02/04/23 23:36 Atorvastatin 80 Mg Tab PO 80 mg HS ANDREA Administration Clopidogrel Bisulfate 75 mg 02/05/23 09:00 Clopidogrel 75 Mg Tab PO DAILY [facility] Ferrous Sulfate 325 mg 02/05/23 07:30 Ferrous Sulfate 325 Mg Tab PO BID-W/MEALS [facility] Fluticasone Propionate 2 puff 02/05/23 08:00 Fluticasone 110 Mcg Inhaler INHALATION RT-BID [facility] Heparin Sodium (Porcine) 5,000 unit 02/05/23 00:00 02/04/23 23:36 Heparin Sodium,Porcine 5,000 Unit/Ml 1 Ml Vial SQ 5,000 unit Q8HR ANDREA Administration Insulin Aspart 0 unit 02/05/23 07:30 Insulin Aspart (Novolog) 100 Unit/Ml Vial SQ ACHS [facility] Protocol Metoprolol Tartrate 12.5 mg 02/04/23 23:15 02/04/23 23:35 Metoprolol Tartrate 12.5 Mg Tab PO 12.5 mg BID ANDREA Administration Midodrine 5 mg 02/05/23 07:30 Midodrine 5 Mg Tab PO AC-TID ANDREA Montelukast Sodium 10 mg 02/05/23 21:00 Montelukast 10 Mg Tab PO HS ANDREA Naloxone HCl 0.2 mg 02/04/23 18:20 Naloxone 0.4 Mg/Ml 1 Ml Vial IV Q2M PRN Opioid Reversal Pantoprazole Sodium 40 mg 02/05/23 07:30 Pantoprazole 40 Mg Tablet PO AC-BID ANDREA Tamsulosin HCl 0.4 mg 02/05/23 09:00 Tamsulosin 0.4 Mg Cap.Er.24h PO DAILY ANDREA Intake and Output 02/04/23 02/04/23 02/05/23 14:59 22:59 06:59 Other: Voiding Method Toilet Toilet # Voids 1 3 Weight 88.451 kg Patient Weight 02/05/23 06:59 Weight 88.451 kg 02/04/23 15:24 02/04/23 15:24
[2023-02-05] MEDS ORDERED: INSULIN ASPART (NovoLOG) 100 UNIT/ML VIAL SQ SCH (07:30)
[2023-02-05] MEDS ORDERED: PANTOPRAZOLE 40 MG TABLET PO SCH ×2 (07:30→09:00)
[2023-02-05] MEDS ORDERED: MIDODRINE 5 MG TAB PO SCH (07:30)
[2023-02-05] MEDS ORDERED: FERROUS SULFATE 325 MG TAB PO SCH (07:30)
[2023-02-05] MEDS ORDERED: FLUTICASONE 110 MCG INHALER INHALATION SCH (08:00)
[2023-02-05 08:12] VITALS: BP 98/63; PULSE 63; RESP 17; TEMP 97.6
[2023-02-05] MEDS ORDERED: ASPIRIN 81 MG PO SCH (09:00)
[2023-02-05] MEDS ORDERED: DAPAGLIFLOZIN PROPANEDIOL 5 MG TABLET PO SCH (09:00)
[2023-02-05] MEDS ORDERED: CLOPIDOGREL 75 MG TAB PO SCH (09:00)
[2023-02-05] MEDS ORDERED: TAMSULOSIN 0.4 MG CAP.ER.24H PO SCH (09:00)
[2023-02-05 09:58] LABS: Basophils # (A) 0.06 X 10*3/uL (0.00-0.10); Eosinophils % (A) 11.8 %; HCT 30.3 % (39.6-50.0); HGB 9.6 d/dL (13.0-17.0); Lymphocytes # (A) 0.75 X 10*3/uL (0.90-5.00); Lymphocytes % (A) 12.6 %; MCH 29.9 pg (27.0-32.0); MCHC 31.7 d/dL (32.0-37.0); MCV 94.4 FL (80.0-97.0); Mean Platelet Volume 9.8 FL (9.5-12.2); Monocytes # (A) 0.65 X 10*3/uL (0.20-1.00); Monocytes % (A) 10.9 %; NRBC Per 100 WBC 0 X 10*3/uL (0.00-0.01); Neutrophils # (A) 3.75 X 10*3/uL (1.80-7.70); Platelet Count 414 X 10*3/uL (140-440); RBC 3.21 X 10*6/uL (4.40-5.60); RDW 16.4 % (11.5-14.5); WBC 5.95 X 10*3/uL (4.50-10.00)
[2023-02-05] MEDS: METOPROLOL TARTRATE 12.5 MG TAB PO SCH (09:59)
[2023-02-05] MEDS: HEPARIN SODIUM,PORCINE 5,000 UNIT/ML 1 ML VIAL SQ SCH (10:00)
[2023-02-05 10:01] LABS: BUN/Creat Ratio 20.57 Ratio (12.00-20.00); Blood Urea Nitrogen 14.4 mg/dL (9.0-27.0); Calcium 9.1 mg/dL (8.7-10.3); Carbon Dioxide 20.4 mmol/L (21.6-31.8); Chloride 106 mmol/L (96-109); Glucose 110 mg/dL (70-110); Potassium 4.2 mmol/L (3.5-5.5); Sodium 139 mmol/L (135-145)
--- NOTE | 2023-02-05 11:06 | CA ---
Transthoracic Echo Report Name: Shakir Rodriguez Age: 72 Gender: M : 1950 Exam Date: 02/04/2023 18:34 Exam Location: [facility] Ht (in): 67 Wt (lb): 195 Ordering Physician: Sven Lawson MD Attending/Referring Phys: [employer] Lesley Zavala RDCS Procedure CPT: Indications: fatigue, recent cabg Cardiac Hx: Technical Quality: Fair Contrast 1: Total Dose (mL): Contrast 2: Total Dose (mL): MEASUREMENTS (Male / Female) Normal Values 2D ECHO LV Diastolic Diameter PLAX 5.3 cm 4.2 - 5.9 / 3.9 - 5.3 cm LV Systolic Diameter PLAX 3.4 cm IVS Diastolic Thickness 1.3 cm 0.6 - 1.0 / 0.6 - 0.9 cm LVPW Diastolic Thickness 1.2 cm 0.6 - 1.0 / 0.6 - 0.9 cm LV Relative Wall Thickness 0.5 LA Systolic Diameter LX 3.6 cm 3.0 - 4.0 / 2.7 - 3.8 cm LA Volume 31.1 cm??? 18 - 58 / 22 - 52 cm??? LA Volume Index 15.0 cm???/m??? 16 - 28 cm???/m??? M-MODE Aortic Root Diameter MM 3.4 cm MV E Point Septal Separation 0.5 cm AV Cusp Separation MM 1.8 cm DOPPLER AV Peak Velocity 106.0 cm/s AV Peak Gradient 4.5 mmHg MV Area PHT 2.8 cm??? Mitral E Point Velocity 55.4 cm/s Mitral A Point Velocity 45.9 cm/s Mitral E to A Ratio 1.2 MV Deceleration Time 271.6 ms MV E' Velocity 7.7 cm/s Mitral E to MV E' Ratio 7.2 TR Peak Velocity 217.3 cm/s TR Peak Gradient 18.9 mmHg Right Ventricular Systolic Press 23.7 mmHg FINDINGS Left Ventricle Left ventricular ejection fraction is estimated at 50-55 %. Mildly increased septal wall thickness. Right Ventricle Right ventricle not well visualized. Right Atrium Normal right atrial size. Left Atrium Normal left atrial size. Mitral Valve Structurally normal mitral valve. No mitral stenosis, regurgitation or prolapse. Aortic Valve Trileaflet aortic valve. No aortic valve stenosis or regurgitation. Tricuspid Valve Tricuspid valve not well visualized. Mild tricuspid regurgitation. Pulmonic Valve Pulmonic valve not well visualized. Pericardium No pericardial effusion. Aorta Normal size aortic root and proximal ascending aorta. CONCLUSIONS Technically difficult study. Poorly visualized endocardium. Probably normal LV systolic function Previewed by: Dr. Ankit Castle MD (Electronically Signed) Final Date: 05 February 2023 11:05
--- NOTE | 2023-02-05 11:08 | P.DS ---
Providers Date of admission: 02/04/23 18:20 Expected date of discharge: 02/05/23 Attending physician: Rocio Hermosillo DO Consults: 02/04/23 18:33 Consult Physician Routine Consulting Provider: [facility] Consult Reason/Comments: fatigue, recent cabg Do you want consulting provider notified?: Yes Consult Physician Routine Consulting Provider: Daniel Juarez Consult Reason/Comments: recent cabg, fatigue Do you want consulting provider notified?: Yes Primary care physician: Roger [facility] Course: Discharge Diagnosis: Shortness of breath suspect related to bilateral pleural effusion Coronary artery bypass grafting secondary to coronary artery disease Diabetes mellitus type 2 Hypertension Dyslipidemia COPD without exacerbation Hospital Course: Patient is a 72-year-old male with recent coronary artery bypass grafting completed on 01/14/23, type 2 diabetes mellitus on orals, hypertension, dyslipidemia, COPD, and prostate cancer who presented to the emergency room due to fatigue and shortness of breath. He checked his oxygen at home on room air and it was noted to be 87% by the visiting nurse. In the emergency room he underwent extensive evaluation. Chest x-ray revealed cardiomegaly with bilateral pleural effusions left greater than right. Laboratory analysis was remarkable for hemoglobin 9.8, lactic acid 2.9. BNP was normal at 504. In the ER the patient oxygen saturation was 98% on room air. He was given 1 dose of IV Lasix. He was placed in observation for further management. He was seen by cardiology who agreed with continued Lasix. He had an echocardiogram completed, results pending at time of discharge. He was seen by cardiothoracic surgery who recommended discharge and outpatient follow-up. Follow-up: He will continue to have home care. He will see Dr. Long on 02/16 and can have outpatient thoracentesis performed at that time if indicated. He will see Dr. Juarez in the office next week. Additional medications will be Lasix 20 mg by mouth daily for the next 7 days at the recommendation of cardiothorasic surgery. Patient seen and examined at bedside. He still continues to have some mild shortness of breath, he is frustrated that he still feeling weak after his open- heart surgery. He has no other complaints at this time. Vital signs reviewed and stable. General: nontoxic, no distress, appears at stated age Cardiovascular: S1S2 reg, no murmur, positive posterior tibial pulse bilateral, Lungs: Decreased breath sounds on the left, no rhonchi, no rales , no accessory muscle use Abdominal: soft, nontender to palpation, no guarding, no appreciable organomegaly Ext: no gross muscle atrophy, no edema b/l lower extremities, no contractures Neuro: CN II-XI grossly intact, no focal neuro deficits Psych: Alert, oriented, appropriate affect A total of 25 minutes of time were spent preparing this complex discharge summary. Patient was discharged on 02/05/23. This dictation was prepared using [employer] voice recognition software. Though every attempt is made to correct errors during dictation some may still exist. Patient Condition at Discharge: Undetermined Plan - Discharge Summary New Discharge Prescriptions: New Furosemide [Lasix] 20 mg PO DAILY #30 tab Continue Multivitamin [Men's Multi-Vitamin] 1 tab PO DAILY Tamsulosin [Flomax] 0.4 mg PO DAILY Montelukast [Singulair] 10 mg PO HS Lansoprazole [Prevacid] 30 mg PO DAILY Atorvastatin [Lipitor] 80 mg PO HS Cranberry Fruit Extract [Cranberry] 4,200 mg PO DAILY Enzalutamide [Xtandi] 160 mg PO HS Ferrous Sulfate [Iron (65 MG Elemental)] 325 mg PO BID-W/MEALS #30 tab Acetaminophen Tab [Tylenol] 650 mg PO Q4HR PRN tab PRN Reason: Fever And/ Or Pain Aspirin 81 mg PO DAILY #0 Cholecalciferol [Vitamin D3 (25 Mcg = 1000 Iu)] 50 mcg PO DAILY Ascorbic Acid [Vitamin C] 500 mg PO DAILY Beclomethasone Dipropionate [Qvar 80mcg Redihaler] 2 puff INHALATION RT-BID Albuterol Sulfate [Proair Respiclick] 1 puff INHALATION Q4-6H PRN PRN Reason: Dyspnea sitaGLIPtin PHOS/metFORMIN HCL [Janumet 50-1,000 mg Tablet] 1 tab PO DAILY Empagliflozin [Jardiance] 10 mg PO DAILY #30 tablet Clopidogrel [Plavix] 75 mg PO DAILY #30 tab Midodrine [ProAmatine] 5 mg PO AC-TID #90 tab Cranberry 4200mg 4,200 mg PO HS amLODIPine [Norvasc] 2.5 mg PO HS Metoprolol Tartrate [Lopressor] 12.5 mg PO BID Pantoprazole [Protonix] 40 mg PO DAILY Sennosides-Docusate Sodium [Senokot-S] 2 tab PO HS PRN PRN Reason: Constipation Discharge Medication List Multivitamin [Men's Multi-Vitamin] 1 tab PO DAILY 06/28/16 [History] Tamsulosin [Flomax] 0.4 mg PO DAILY 12/22/21 [History] Albuterol Sulfate [Proair Respiclick] 1 puff INHALATION Q4-6H PRN 01/10/23 [History] Ascorbic Acid [Vitamin C] 500 mg PO DAILY 01/10/23 [History] Atorvastatin [Lipitor] 80 mg PO HS 01/10/23 [History] Beclomethasone Dipropionate [Qvar 80mcg Redihaler] 2 puff INHALATION RT-BID 01/10/23 [History] Cholecalciferol [Vitamin D3 (25 Mcg = 1000 Iu)] 50 mcg PO DAILY 01/10/23 [History] Cranberry Fruit Extract [Cranberry] 4,200 mg PO DAILY 01/10/23 [History] Enzalutamide [Xtandi] 160 mg PO HS 01/10/23 [History] Lansoprazole [Prevacid] 30 mg PO DAILY 01/10/23 [History] Montelukast [Singulair] 10 mg PO HS 01/10/23 [History] sitaGLIPtin PHOS/metFORMIN HCL [Janumet 50-1,000 mg Tablet] 1 tab PO DAILY 01/10/23 [History] Acetaminophen Tab [Tylenol] 650 mg PO Q4HR PRN tab 01/20/23 [Rx] Aspirin 81 mg PO DAILY #0 01/20/23 [Rx] Clopidogrel [Plavix] 75 mg PO DAILY #30 tab 01/20/23 [Rx] Empagliflozin [Jardiance] 10 mg PO DAILY #30 tablet 01/20/23 [Rx] Ferrous Sulfate [Iron (65 MG Elemental)] 325 mg PO BID-W/MEALS #30 tab 01/20/23 [Rx] Midodrine [ProAmatine] 5 mg PO AC-TID #90 tab 01/20/23 [Rx] Cranberry 4200mg 4,200 mg PO HS 02/04/23 [History] Metoprolol Tartrate [Lopressor] 12.5 mg PO BID 02/04/23 [History] Pantoprazole [Protonix] 40 mg PO DAILY 02/04/23 [History] Sennosides-Docusate Sodium [Senokot-S] 2 tab PO HS PRN 02/04/23 [History] amLODIPine [Norvasc] 2.5 mg PO HS 02/04/23 [History] Furosemide [Lasix] 20 mg PO DAILY #30 tab 02/05/23 [Rx] Follow up Appointment(s)/Referral(s): David Bagley MD [STAFF PHYSICIAN] - As Needed (Follow up as scheduled) Rehab [facility],Cardiac [NON-STAFF] - 4 Weeks (You will receive a phone call in approximately 4-6 weeks for evaluation for cardiac rehab) Roger Veloz MD [Primary Care Provider] - 02/08/23 1:45 pm [facility] [place] [NON-STAFF] - 1-2 Days Daniel Juarez MD [STAFF PHYSICIAN] - 02/10/23 10:00 am Jacey Long MD [STAFF PHYSICIAN] - 02/16/23 8:45 am Activity/Diet/Wound Care/Special Instructions: Additional medications: Lasix 20 mg take 1 tablet by mouth daily for 7 days. (You have been ordered 30 tablets and told, please keep the remainder of these tablets on hand for further instructions from Dr. Juarez/cardiovascular team). DISCHARGE INSTRUCTIONS: 1. No driving for 4 weeks, or until physician gives their ok. 2. The patient should sleep in their own bed, no medical bed needed. 3. Stairs are not an issue. If the bedroom is upstairs, it is advised that the patient go up at night and down in the morning for the first week. Go slowly, using handrail and take 1 step at a time. 4. MATTHIEU hose are to be worn for 30 days post surgery or until physician discontinues. 5. Heart hugger is to be worn 100% of the time until physician discontinues.(except when showering) 6. No lifting, pushing, or pulling more than 10 pounds for 12 weeks. The physician will advise of any restriction changes. 7. The patient is expected to continue the prescribed walking program. 8. Continue pain control per as needed orders. 9. Continue with incentive spirometry and splinting/heart hugger until otherwise directed by the physician. 10. Must shower daily using liquid antibacterial soap 11. Routine sternal incision care. No powders, lotions, ointments on incisions. No dressings are necessary on incisions unless they are draining. Dermabond tape is to remain on sternal incision until surgeon follow-up. 12. Please call surgeon/SANDBLAST CARVER for temp greater than 101 F or purulent drainage from incisions. 13. You should weigh yourself daily, record and bring log with you to follow up appointments. 14. All prescriptions given by surgeon for 30 days. Refills need to be filled through strand buncher fine wire/primary care physician. 15. A Red armband has been placed on the patient. It should be worn for 30 days post discharge from surgery and will be removed by the cardiac surgeons. If an ER visit is necessary, please make sure the number on the Red armband is called before going to ER. 16. You have been referred to and are expected to begin Cardiac Rehab in approximately 4-6 weeks. 17. Check blood sugar every morning before eating and make a log to bring to your appointment with Dr. Veloz. HOME HEALTH SERVICES TO PROVIDE: RN SKILLED HOME CARE SERVICES FOR POST-OP SURGICAL PATIENTS WITH THE FOLLOWING: Coronary Artery Bypass Surgery (CABG), Mitral Valve Replacement/Repair ( MVR), Aortic Valve Replacement/Repair (AVR) RN TO CONTINUE EDUCATION FROM ``ROAD TO A HEALTH HEART PATIENT EDUCATION MANUAL (GIVEN TO PATIENT IN THE HOSPITAL) MEDICATION RECONCILIATION WITH EDUCATION NEEDED ON FIRST HOME VISIT EMPHASIZE IMPORTANCE OF WEARING BREAST SUPPORT/HEART HUGGER ENCOURAGE USE OF INCENTIVE SPIROMETER 10 X EVERY HOUR WHILE AWAKE ENCOURAGE UTILIZATION OF LOWER EXTREMITY COMPRESSION STOCKINGS/MATTHIEU HOSE and ELEVATE LEGS ABOVE LEVEL OF HEART WHILE AT REST. ENCOURAGE AMBULATION 3-5x/day INCREASING TOLERATES, WHILE AVOIDING EXTREMES IN TEMPERATURE FREQUENCY: RN TO OPEN THE PATIENT WITHIN 24 HOURS OF DISCHARGE FROM THE HOSPITAL WITH [place] [facility] [place]ISIT 2-3 X A WEEK FOR 4 WEEKS ESTABLISHED BY PATIENT NEEDS. LABORATORY: CBC, CMP TO BE DRAWN ON THE THIRD DAY HOME, (RAN STAT) FAX RESULTS TO [phone]. TELEHEALTH PARAMETERS: WEIGHT: NOTIFY MD OF WEIGHT GAIN OF 2 LBS IN 24 HOURS OR 5 LBS IN ONE WEEK HR: NOTIFY MD OF HR <55 BPM OR HR>100 BPM BP: NOTIFY MD IF BP <90/55 OR BP>140/100 O2 SAT: NOTIFY MD IF PO2<93% ON ROOM AIR SEND TELEHEALTH REPORT TO FLIGHT TEST MECHANIC AND CARDIOVASCULAR SURGEON THE FIRST WEEK OF CARE AND THEN BI-WEEKLY. PLEASE ADDITIONALLY COMMUNICATE ANY ABNORMALS AND NEW FINDINGS TO THE SURGEONS OFFICE. Discharge Disposition: HOME WITH HOME HEALTH SERVICES
--- NOTE | 2023-02-05 11:23 | P.GSCN ---
History of Present Illness Consult date: 02/05/23 Reason for Consult: Known to our services from recent open heart Requesting physician: Sven Lawsno History of present illness: This is a 72-year-old gentleman who follows outpatient with Dr. Veloz for primary care and Dr. Bagley for cardiology. He has a previous medical history of coronary artery disease with previous PCI status post three-vessel CABG on 01/14/2023, hypertension, hyperlipidemia, type 2 diabetes, prostate cancer post radiation currently receiving oral daily chemo. He was recently hospitalized for chest pain and stable angina. He underwent urgent three-vessel CABG. His postoperative recovery was uneventful except for some acute blood loss anemia which is common after on pump CABG and he was transfused. He was stable and discharged on postoperative day #6. He did follow-up this last week in the surgery clinic as well as with Dr. Bagley yesterday. In the hat renovator's he was felt to be pale (which he was pre-and postoperative as well), and did complain of some generalized weakness and shortness of breath, both of which are common for the first few weeks after open heart surgery. He was instructed to report to [facility] emergency room for evaluation. Lab work revealed hemoglobin 9.8, platelet count 478, lactic acid 2.9 which normalized to 2.0, WBC normal at 5.4, creatinine 0.7, troponin negative, BNP 504, urinalysis negative, and covid PCR negative. Chest x-ray revealed cardiomegaly with bilateral pleural effusions, again common after open heart surgery. CT of the chest confirmed the same. The patient was given IV fluids in the ER due to lactic acid despite negative white count, no tachycardia, and no other signs of infection. He was placed in the observation unit overnight. This morning vital signs remained stable, labwork is stable, he was given IV Lasix and has diuresed nicely. Cardiothoracic surgery was consulted as he is known to our service being less than 30 days postop. Review of Systems Review of systems was completed and was negative except as noted - Constitutional Reports weakness Past Medical History Past Medical History: Asthma, Coronary Artery Disease (CAD), Cancer, Chest Pain / Angina, Diabetes Mellitus, Hyperlipidemia, Hypertension Additional Past Medical History / Comment(s): MELENOMA, HIATAL HERNIA, PROSTATE CANCER (ON ORAL CHEMO), covid approximated 6 months ago History of Any Multi-Drug Resistant Organisms: None Reported Past Surgical History: Coronary Bypass/CABG, Heart Catheterization, Heart Catheterization With Stent Additional Past Surgical History / Comment(s): NASAL POLYPS REMOVED. CORIE. CATARACTS REMOVED WITH LENS IMPLANTS. Three-vessel CABG 01/14/2023 Past Anesthesia/Blood Transfusion Reactions: No Reported Reaction Date of Last Stent Placement:: JUN 2008 Past Psychological History: No Psychological Hx Reported Smoking Status: Never smoker Past Alcohol Use History: None Reported, Rare Past Drug Use History: None Reported - Past Family History Mother Family Medical History: Congestive Heart Failure (CHF), Diabetes Mellitus Father Family Medical History: Cancer Additional Family Medical History / Comment(s): lung cancer Brother(s) Family Medical History: Coronary Artery Disease (CAD) Additional Family Medical History / Comment(s): Diagnoses CAD at early age with subsequent CABG Medications and Allergies Home Medications Medication Instructions Recorded Confirmed Type Multivitamin [Men's Multi-Vitamin] 1 tab PO DAILY 06/28/16 02/04/23 History Tamsulosin [Flomax] 0.4 mg PO DAILY 12/22/21 02/04/23 History Albuterol Sulfate [Proair 1 puff INHALATION Q4-6H PRN 01/10/23 02/04/23 History Respiclick] Ascorbic Acid [Vitamin C] 500 mg PO DAILY 01/10/23 02/04/23 History Atorvastatin [Lipitor] 80 mg PO HS 01/10/23 02/04/23 History Beclomethasone Dipropionate [Qvar 2 puff INHALATION RT-BID 01/10/23 02/04/23 Hi story 80mcg Redihaler] Cholecalciferol [Vitamin D3 (25 50 mcg PO DAILY 01/10/23 02/04/23 History Mcg = 1000 Iu)] Cranberry Fruit Extract [Cranberry] 4,200 mg PO DAILY 01/10/23 02/04/23 History Enzalutamide [Xtandi] 160 mg PO HS 01/10/23 02/04/23 History Lansoprazole [Prevacid] 30 mg PO DAILY 01/10/23 02/04/23 History Montelukast [Singulair] 10 mg PO HS 01/10/23 02/04/23 History sitaGLIPtin PHOS/metFORMIN HCL 1 tab PO DAILY 01/10/23 02/04/23 History [Janumet 50-1,000 mg Tablet] Acetaminophen Tab [Tylenol] 650 mg PO Q4HR PRN tab 01/20/23 02/04/23 Rx Aspirin 81 mg PO DAILY #0 01/20/23 02/04/23 Rx Clopidogrel [Plavix] 75 mg PO DAILY #30 tab 01/20/23 02/04/23 Rx Empagliflozin [Jardiance] 10 mg PO DAILY #30 tablet 01/20/23 02/04/23 Rx Ferrous Sulfate [Iron (65 MG 325 mg PO BID-W/MEALS #30 tab 01/20/23 02/04/23 Rx Elemental)] Midodrine [ProAmatine] 5 mg PO AC-TID #90 tab 01/20/23 02/04/23 Rx Cranberry 4200mg 4,200 mg PO HS 02/04/23 02/04/23 History Metoprolol Tartrate [Lopressor] 12.5 mg PO BID 02/04/23 02/04/23 History Pantoprazole [Protonix] 40 mg PO DAILY 02/04/23 02/04/23 History Sennosides-Docusate Sodium 2 tab PO HS PRN 02/04/23 02/04/23 History [Senokot-S] amLODIPine [Norvasc] 2.5 mg PO HS 02/04/23 02/04/23 History Furosemide [Lasix] 20 mg PO DAILY #30 tab 02/05/23 Rx Allergies Allergy/AdvReac Type Severity Reaction Status Date / Time No Known Allergies Allergy Verified 02/04/23 18:42 Surgical - Exam Vital Signs Temp Pulse Resp BP Pulse Ox 98.2 F 66 22 109/71 98 02/04/23 15:02 02/04/23 15:02 02/04/23 15:02 02/04/23 15:02 02/04/23 15:02 CONSTITUTIONAL: Awake and alert, appears comfortable, cooperative, well- developed, well-nourished, no pain, no acute distress EYES: Pupils equal, round, reactive to light, normal ocular movement ENT: Moist mucous membranes without oral lesions present NECK: No masses, no bruits, trachea midline RESPIRATORY: Lungs sounds diminished in the bases bilaterally. Respirations even, nonlabored. Currently on room air with oxygen saturation 97%. Strong cough. No chest wall deformities. No clubbing or cyanosis present CARDIOVASCULAR: S1, S2 present. Regular rate and rhythm, sinus rhythm on telemetry. Sternum stable. Palpable peripheral pulses bilaterally. No edema present heart hugger in place. GASTROINTESTINAL: Abdomen soft, nontender, nondistended without masses or organomegaly noted. There is no rebound or guarding present. Active bowel sounds present 4 quadrants. GENITOURINARY: Deferred INTEGUMENTARY: Skin is warm and dry with evidence of good perfusion. Anterior chest incision well approximated without redness or drainage. NEUROLOGIC: Cranial nerves II through XII intact, normal coordination, no obvious motor or sensory deficits, speech is normal MUSKULOSKELETAL: Able to move all extremities, strength equal bilaterally, normal posture PSYCHIATRIC: Alert and oriented to person place and time, appropriate affect, intact judgment and insight Results - Labs 02/05/23 05:39 02/05/23 05:39 Abnormal Lab Results - Last 24 Hours (Table) 02/04/23 02/04/23 02/04/23 Range/Units 15:24 15:24 15:24 RBC 3.26 L (4.30-5.90) m/uL Hgb 9.8 L (13.0-17.5) gm/dL Hct 30.7 L (39.0-53.0) % MCHC (32.0-37.0) d/dL RDW 16.3 H (11.5-15.5) % Plt Count 478 H (150-450) k/uL Lymphocytes # 0.7 L (1.0-4.8) k/uL Eosinophils # (0.04-0.35) X 10*3/uL Carbon Dioxide 19 L (22-30) mmol/L Anion Gap (4.00-12.00) mmol/L BUN/Creatinine Ratio (12.00-20.00) Ratio Glucose 120 H (74-99) mg/dL POC Glucose (mg/dL) (70-110) mg/dL Plasma Lactic Acid Jacques (0.7-2.0) mmol/L Urine Glucose (UA) 4+ H (Negative) 02/04/23 02/04/23 02/05/23 Range/Units 15:24 19:47 05:39 RBC 3.21 L (4.30-5.90) m/uL Hgb 9.6 L (13.0-17.5) gm/dL Hct 30.3 L (39.0-53.0) % MCHC 31.7 L (32.0-37.0) d/dL RDW 16.4 H (11.5-15.5) % Plt Count (150-450) k/uL Lymphocytes # 0.75 L (1.0-4.8) k/uL Eosinophils # 0.70 H (0.04-0.35) X 10*3/uL Carbon Dioxide (22-30) mmol/L Anion Gap (4.00-12.00) mmol/L BUN/Creatinine Ratio (12.00-20.00) Ratio Glucose (74-99) mg/dL POC Glucose (mg/dL) (70-110) mg/dL Plasma Lactic Acid Jacques 2.9 H* 2.6 H* (0.7-2.0) mmol/L Urine Glucose (UA) (Negative) 02/05/23 02/05/23 Range/Units 05:39 06:03 RBC (4.30-5.90) m/uL Hgb (13.0-17.5) gm/dL Hct (39.0-53.0) % MCHC (32.0-37.0) d/dL RDW (11.5-15.5) % Plt Count (150-450) k/uL Lymphocytes # (1.0-4.8) k/uL Eosinophils # (0.04-0.35) X 10*3/uL Carbon Dioxide 20.4 L (22-30) mmol/L Anion Gap 12.60 H (4.00-12.00) mmol/L BUN/Creatinine Ratio 20.57 H (12.00-20.00) Ratio Glucose (74-99) mg/dL POC Glucose (mg/dL) 128 H (70-110) mg/dL Plasma Lactic Acid Jacques (0.7-2.0) mmol/L Urine Glucose (UA) (Negative) Diabetes panel 02/04/23 02/05/23 Range/Units 15:24 05:39 Sodium 137 139 (137-145) mmol/L Potassium 4.4 4.2 (3.5-5.1) mmol/L Chloride 106 106 (98-107) mmol/L Carbon Dioxide 19 L 20.4 L (22-30) mmol/L BUN 15 14.4 (9-20) mg/dL Creatinine 0.70 0.7 (0.66-1.25) mg/dL Glucose 120 H 110 (74-99) mg/dL Calcium 9.3 9.1 (8.4-10.2) mg/dL AST 21 (17-59) U/L ALT 22 (4-49) U/L Alkaline Phosphatase 66 (38-126) U/L Total Protein 6.4 (6.3-8.2) g/dL Albumin 3.9 (3.5-5.0) g/dL Calcium panel 02/04/23 02/05/23 Range/Units 15:24 05:39 Calcium 9.3 9.1 (8.4-10.2) mg/dL Albumin 3.9 (3.5-5.0) g/dL Pituitary panel 02/04/23 02/05/23 Range/Units 15:24 05:39 Sodium 137 139 (137-145) mmol/L Potassium 4.4 4.2 (3.5-5.1) mmol/L Chloride 106 106 (98-107) mmol/L Carbon Dioxide 19 L 20.4 L (22-30) mmol/L BUN 15 14.4 (9-20) mg/dL Creatinine 0.70 0.7 (0.66-1.25) mg/dL Glucose 120 H 110 (74-99) mg/dL Calcium 9.3 9.1 (8.4-10.2) mg/dL Adrenal panel 02/04/23 02/05/23 Range/Units 15:24 05:39 Sodium 137 139 (137-145) mmol/L Potassium 4.4 4.2 (3.5-5.1) mmol/L Chloride 106 106 (98-107) mmol/L Carbon Dioxide 19 L 20.4 L (22-30) mmol/L BUN 15 14.4 (9-20) mg/dL Creatinine 0.70 0.7 (0.66-1.25) mg/dL Glucose 120 H 110 (74-99) mg/dL Calcium 9.3 9.1 (8.4-10.2) mg/dL Total Bilirubin 0.3 (0.2-1.3) mg/dL AST 21 (17-59) U/L ALT 22 (4-49) U/L Alkaline Phosphatase 66 (38-126) U/L Total Protein 6.4 (6.3-8.2) g/dL Albumin 3.9 (3.5-5.0) g/dL - Imaging Chest x-ray: report reviewed, image reviewed CT scan - chest: report reviewed, image reviewed Assessment and Plan Assessment: Weakness, shortness of breath Bilateral pleural effusions Coronary artery disease with previous PCI status post three-vessel CABG on 01/14/2023 Hypertension Hyperlipidemia Type 2 diabetes Prostate cancer post radiation currently receiving oral daily chemo Plan: The patient was seen and examined on the observation unit in no acute distress. Denies any pain, states shortness of breath is improved. He was able to get up and out of bed with standby assist only. The case was reviewed with Dr. Juarez, we reviewed his chest x-ray and CT of the chest. The patient should be discharged to home today on 1 week's worth of oral Lasix, along with his other h ome medications. He was encouraged to continue to increase his activity as tolerated, avoid lifting/pulling/pushing anything heavier than 10 pounds as per sternal precautions. The patient has remained pale both pre-and postoperatively. Shortness of breath, pleural effusions, generalized weakness is common for a few weeks after open heart surgery and does not require hospitalization. The patient does have a scheduled outpatient follow-up with Dr. Juarez this week as well as Dr. Long next week. If he should need thoracentesis this can be done on an outpatient basis. Home care to resume upon discharge. This was discussed with the patient and he is in agreement. Thank you for this consult. I have personally seen and examined the patient, performed the documentation and the assessment and plan as written. Number of minutes spent on the visit: 30. Valentina Mattson, [facility] Attending Addendum: Pt seen and evaluated with the MELTER SUPERVISOR above. Agree with her assessment and plan. The patient is s/p recent CABG who presented with SOB. There are small bilateral pleural effusions. His SOB has already improved with lasix. Recommend discharge home with a 7d course of lasix. I spent 35 min reviewing the data and going over the plan of care with the patient and the care team. Time with Patient: Greater than 30
[2023-02-05] MEDS ORDERED: MONTELUKAST 10 MG TAB PO SCH (21:00)
[2023-02-05] MEDS ORDERED: NON FORMULARY DRUG (Enzalutamide [Xtandi] 40 MG Tablet) PO SCH (21:00)
[2023-02-06] MEDS ORDERED: FUROSEMIDE 20 MG TAB PO SCH (09:00)
== END 2023-02-05 12:05 | disposition home health service (06) ==
LOC: EC 14:55 → 6NMEDSUR 18:20
PROVIDERS: ADMIT Internal Medicine; ATTEND Internal Medicine
DX: R53.83 Other fatigue (principal); R06.02 Shortness of breath; R60.0 Localized edema; J90 Pleural effusion, not elsewhere classified; I25.10 Atherosclerotic heart disease of native coronary artery without angina pectoris; C61 Malignant neoplasm of prostate; E87.20 Acidosis, unspecified; E11.9 Type 2 diabetes mellitus without complications; E78.5 Hyperlipidemia, unspecified; I10 Essential (primary) hypertension; J44.9 Chronic obstructive pulmonary disease, unspecified; Z85.820 Personal history of malignant melanoma of skin; Z92.21 Personal history of antineoplastic chemotherapy; Z92.3 Personal history of irradiation; Z95.5 Presence of coronary angioplasty implant and graft; Z79.84 Long term (current) use of oral hypoglycemic drugs; Z79.899 Other long term (current) drug therapy; Z20.822 Contact with and (suspected) exposure to COVID-19; Z79.82 Long term (current) use of aspirin; Z79.02 Long term (current) use of antithrombotics/antiplatelets; Z82.49 Family history of ischemic heart disease and other diseases of the circulatory system
CPT/HCPCS: 96372 ×2; 96374; 99285; 36415; 94640; 94760; 93005; 93306; 83880; 80053; 80048; 83605; 83735; 84484; 85025 ×2; 85610; 85730; 81003; 87636; 71046; 71275; G0378 ×2; J1644 ×2; J1940; Q9967

== ENCOUNTER → 2023-02-10 | Outpatient (CLI) | payer OTHER, MEDICARE ==
[2023-02-10 16:29] LABS: Basophils # (A) 0.06 X 10*3/uL (0.00-0.10); Basophils % (A) 0.6 %; Eosinophils % (A) 6.5 %; HCT 34.1 % (39.6-50.0); HGB 10.4 d/dL (13.0-17.0); Lymphocytes # (A) 0.78 X 10*3/uL (0.90-5.00); Lymphocytes % (A) 8.4 %; MCH 28.9 pg (27.0-32.0); MCHC 30.5 d/dL (32.0-37.0); MCV 94.7 FL (80.0-97.0); Monocytes # (A) 0.82 X 10*3/uL (0.20-1.00); Monocytes % (A) 8.8 %; NRBC Per 100 WBC 0 X 10*3/uL (0.00-0.01); Neutrophils # (A) 6.99 X 10*3/uL (1.80-7.70); Neutrophils % (A) 75.3 %; Platelet Count 354 X 10*3/uL (140-440); RDW 16.6 % (11.5-14.5); WBC 9.29 X 10*3/uL (4.50-10.00)
[2023-02-10 17:27] LABS: % Iron Saturation 10.32 (15.00-50.00); Iron 39 UG/DL (65-175); Prostate Specific Antigen 0.02 ng/mL (0.000-6.500); Total Iron Binding Capacity 378 UG/DL (228-460)
[2023-02-10 18:05] LABS: Testosterone <10.00 ng/dL (86.98-780.10)
== END | disposition home or self-care (01) ==
LOC: LABWHC1 10:01
PROVIDERS: ATTEND Urology
DX: C61 Malignant neoplasm of prostate (principal); E11.59 Type 2 diabetes mellitus with other circulatory complications; D50.9 Iron deficiency anemia, unspecified; E86.0 Dehydration
CPT/HCPCS: 36415; 82607; 82746; 83036; 83540; 83550; 83735; 84153; 84403; 85025

== ENCOUNTER → 2023-08-10 | Outpatient (CLI) | payer MEDICARE ==
[2023-08-10 16:44] LABS: Prostate Specific Antigen <0.01 ng/mL (0.000-6.500); Testosterone <10.00 ng/dL (86.98-780.10)
== END | disposition home or self-care (01) ==
LOC: LABWHC1 12:50
PROVIDERS: ATTEND Urology
DX: C61 Malignant neoplasm of prostate (principal)
CPT/HCPCS: 36415; 84153; 84403

== ENCOUNTER → 2023-10-28 | Outpatient (CLI) | payer MEDICARE ==
[2023-10-28 17:21] LABS: Basophils # (A) 0.09 X 10*3/uL (0.00-0.10); Basophils % (A) 1.4 %; Eosinophils % (A) 11.1 %; HCT 39.6 % (39.6-50.0); HGB 12.6 g/dL (13.0-17.0); Lymphocytes % (A) 17.5 %; MCH 29.7 pg (27.0-32.0); MCHC 31.8 g/dL (32.0-37.0); MCV 93.4 FL (80.0-97.0); Mean Platelet Volume 10.6 FL (9.5-12.2); Monocytes # (A) 0.85 X 10*3/uL (0.20-1.00); Monocytes % (A) 13.5 %; NRBC Per 100 WBC 0 X 10*3/uL (0.00-0.01); Neutrophils # (A) 3.53 X 10*3/uL (1.80-7.70); Platelet Count 264 X 10*3/uL (140-440); RBC 4.24 X 10*6/uL (4.40-5.60); RDW 13.8 % (11.5-14.5)
[2023-10-28 17:47] LABS: ALT 18 U/L (10-49); AST 18 U/L (14-35); Albumin 4.6 g/dL (3.8-4.9); Albumin/Globulin Ratio 1.92 Ratio (1.60-3.17); Alkaline Phosphatase 68 U/L (41-126); BUN/Creat Ratio 15.11 Ratio (12.00-20.00); Blood Urea Nitrogen 13.6 mg/dL (9.0-27.0); C Reactive Protein <0.30 mg/dL (0.00-0.80); Calcium 9.6 mg/dL (8.7-10.3); Carbon Dioxide 22.5 mmol/L (21.6-31.8); Chloride 107 mmol/L (96-109); Globulin 2.4 g/dL (1.6-3.3); Glucose 82 mg/dL (70-110); Potassium 4.4 mmol/L (3.5-5.5); Sodium 143 mmol/L (135-145); Total Bilirubin <0.2 mg/dL (0.3-1.2)
[2023-10-28 18:30] LABS: Erythrocyte Sedimentation Rate 7 mm/Hr (0-20)
[2023-10-28 20:19] LABS: Gliadin AB IgA, Deaminated Negative (Negative); Gliadin AB IgA, Unit <0.5 U/mL; Gliadin AB IgG, Deaminated Negative (Negative); Gliadin AB IgG, Unit 6.2 U/mL
== END | disposition home or self-care (01) ==
LOC: LABWHC1 11:19
PROVIDERS: ATTEND Nurse Practitioner Family
DX: K52.9 Noninfective gastroenteritis and colitis, unspecified (principal)
CPT/HCPCS: 36415; 80053; 83516; 85025; 85652; 86140

== ENCOUNTER → 2023-11-29 | Outpatient (CLI) | payer MEDICARE ==
[2023-11-29 09:49] LABS: African American GFR (CKD) >90 (>60 ml/min/1.73 sqM); Blood Urea Nitrogen 15 mg/dL (9-20); Non-African American GFR(CKD) >90 (>60 ml/min/1.73 sqM)
--- NOTE | 2023-11-30 16:22 | CT ---
EXAMINATION TYPE: CT abdomen pelvis w con CT DLP: 1099.3 mGycm, Automated exposure control for dose reduction was used. DATE OF EXAM: 11/29/2023 11:15 AM COMPARISON: None. CLINICAL INDICATION:Male, 73 years old with history of R19.09 OTHER INTRA-ABDOMINAL AND PELVIC SWELLI NG,; abn colonoscopy TECHNIQUE: Axial CT abdomen pelvis w con;Sagittal and coronal reformats were created on a separate w orkstation. Contrast used:100 mL of Isovue 300 with IV Contrast, (none if empty) Oral contrast used: with Oral Contrast (none if empty) FINDINGS: LOWER CHEST: Unremarkable ABDOMEN LIVER: Diffusely hypoattenuating parenchyma. GALLBLADDER AND BILE DUCTS: Unremarkable. PANCREAS: Unremarkable. SPLEEN: Unremarkable. ADRENAL GLANDS: Unremarkable. KIDNEYS AND URETERS: No evidence of hydronephrosis or renal calculus. The ureters are unremarkable. Left renal cortical simple cyst. PELVIS BLADDER: Unremarkable REPRODUCTIVE: Unremarkable. ABDOMEN & PELVIS STOMACH AND BOWEL: No evidence of bowel obstruction. The appendix is normal. Moderate amount of stool throughout the colon. PERITONEUM/RETROPERITONEUM: No evidence of pneumoperitoneum or free fluid. VASCULATURE: No evidence of aortic aneurysm. MUSCULOSKELETAL: No acute osseous abnormalities. Moderate disc degeneration changes are present throu ghout the thoracolumbar spine. LYMPH NODES: No gross evidence for lymphadenopathy. SOFT TISSUE/ABDOMINAL WALL: Right fat containing inguinal hernia. Left fat-containing inguinal hernia . IMPRESSION: 1. No colonic masses definitively visualized. No evidence for lymphadenopathy. 2. Moderate amount stool throughout the colon. 3. Hepatic steatosis. 4. Bilateral fat-containing inguinal hernias. 5. Simple appearing left renal cyst.
== END | disposition home or self-care (01) ==
LOC: RADCTMAIN 08:59
PROVIDERS: ATTEND Internal Medicine Gastroenterology
DX: K40.20 Bilateral inguinal hernia, without obstruction or gangrene, not specified as recurrent (principal); N28.1 Cyst of kidney, acquired; K76.0 Fatty (change of) liver, not elsewhere classified; R19.09 Other intra-abdominal and pelvic swelling, mass and lump
CPT/HCPCS: 82565; 84520; 74177; 36415; Q9967

== ENCOUNTER → 2024-01-10 | Outpatient (CLI) | payer MEDICARE ==
[2024-01-10 15:09] LABS: Basophils # (A) 0.07 X 10*3/uL (0.00-0.10); Basophils % (A) 1.1 %; Eosinophils % (A) 13.1 %; HCT 35.6 % (39.6-50.0); HGB 11.3 g/dL (13.0-17.0); Lymphocytes # (A) 1.04 X 10*3/uL (0.90-5.00); MCH 29.2 pg (27.0-32.0); MCHC 31.7 g/dL (32.0-37.0); Mean Platelet Volume 10.8 FL (9.5-12.2); Monocytes # (A) 0.88 X 10*3/uL (0.20-1.00); Monocytes % (A) 14.4 %; NRBC Per 100 WBC 0 X 10*3/uL (0.00-0.01); Neutrophils % (A) 53.9 %; Platelet Count 320 X 10*3/uL (140-440); RBC 3.87 X 10*6/uL (4.40-5.60); RDW 13.4 % (11.5-14.5); WBC 6.12 X 10*3/uL (4.50-10.00)
[2024-01-10 15:11] LABS: Blood Urea Nitrogen 16.8 mg/dL (9.0-27.0); Chloride 105 mmol/L (96-109); Glucose 110 mg/dL (70-110); Potassium 4.8 mmol/L (3.5-5.5); Sodium 140 mmol/L (135-145)
[2024-01-10 15:12] LABS: ALT 17 U/L (10-49); AST 18 U/L (14-35); Albumin 4.4 g/dL (3.8-4.9); Albumin/Globulin Ratio 1.83 Ratio (1.60-3.17); Alkaline Phosphatase 66 U/L (41-126); Calcium 9.8 mg/dL (8.7-10.3); Carbon Dioxide 23.1 mmol/L (21.6-31.8); Globulin 2.4 g/dL (1.6-3.3); Total Bilirubin <0.2 mg/dL (0.3-1.2); Total Protein 6.8 g/dL (6.2-8.2)
== END | disposition home or self-care (01) ==
LOC: LABPAT 11:56
PROVIDERS: ATTEND Surgery Plastic and Reconstructive Surgery
DX: Z01.812 Encounter for preprocedural laboratory examination (principal); C18.9 Malignant neoplasm of colon, unspecified
CPT/HCPCS: 80053; 85025; 86850; 86900; 86901

== ENCOUNTER 2024-01-18 07:37 | Inpatient (IN) | payer MEDICARE ==
[2024-01-16 15:35] VITALS: BMI 27.3
[~2024-01-18 07:37] MED LIST changes: -REGADENOSON 0.4 MG/5 ML SYRINGE IV ONE; -REGADENOSON 0.4 MG/5 ML SYRINGE IV PRN; +metroNIDAZOLE-NS PMX 500 MG in SALINE 1 100ML.BAG IVPB PRN
[2024-01-18] MEDS: IV FLUID CONTINUATION 1,000 ML IV ONE ×3 (08:03→13:29)
[2024-01-18 08:15] LABS: Glucose,Whole Blood 115 mg/dL (70-110)
[2024-01-18] MEDS ORDERED: Antibiotics per Pharmacy 1 EACH MISC MISCELLANE PRN ×2 (08:17→09:02)
--- NOTE | 2024-01-18 08:17 | P.GSHP ---
History of Present Illness H&P Date: 01/18/24 CCHIEF COMPLAINT: Colon cancer. HISTORY OF PRESENT ILLNESS: The patient is a 73 year-old male who presents with adenocarcinoma of the descending colon recently diagnosed in the past 2 months. He had a metastatic workup including cardiac risk assessment. He now presents for colon resection. PAST MEDICAL HISTORY: Please see list. PAST SURGICAL HISTORY: Please see list. MEDICATIONS: Please see list. ALLERGIES: Please see list. SOCIAL HISTORY: No illicit drug use FAMILY HISTORY: No reports of Crohn disease or ulcerative colitis. REVIEW OF ORGAN SYSTEMS: GI: Changes in bowel habits and blood in stools. Recent colonoscopy with adenoma. Colonoscopy was incomplete however. CONSTITUTIONAL: No fevers or chills. HEENT: Denies any trouble with vision, hearing or nosebleeds. No difficulty swallowing. LYMPHATIC: The patient denies any lumps and bumps around the neck. ENDOCRINE: Denies any thyroid disorders. Denies any blood sugar glucose intolerance. RESPIRATORY: Denies pneumonia. CARDIOVASCULAR: Has coronary artery disease. GENITOURINARY: Has prostate cancer. MUSCULOSKELETAL: Has occassional back pain, stiffness or joint arthritis. NEUROLOGIC: Denies any numbness or tingling along the distal extremities. No seizure disorders or headaches. PSYCHIATRIC: Denies any depression or suicidal ideation. HEMATOLOGIC: Denies any abnormal bleeding or bruising. BREASTS: Denies any breast lumps, pain or nipple discharge. SKIN: No current skin cancer. No rash. PHYSICAL EXAM: VITAL SIGNS: Stable Patient is a 73-year-old male. GENERAL: Well developed and in no acute distress. Pleasant. HEENT: No sclera icterus. Extraocular movements grossly intact. Moist buccal mucosa. Head is atraumatic, normocephalic. Hears conversational speech. No nasal drainage. NECK: Supple without lymphadenopathy. No JV distention. CHEST: Non-labored respirations and equal bilateral excursions. CARDIOVASCULAR: Regular rate and rhythm. Palpable 2+ radial pulses. ABDOMEN: Soft. Non-tender. Nondistended. MUSCULOSKELETAL: No clubbing, cyanosis or edema. NEUROLOGIC: No focal or lateralizing signs. PSYCH: Appropriate affect. Alert and oriented to person, place and time. SKIN: Well perfused. Good skin turgor. REPORT: Cardiac risk assessment obtained ASSESSMENT: 1. Colon cancer. 2. Prostate cancer 3. Coronary artery disease PLAN: 1. Endoscopic colonoscopy tattooing prior to colon resection described the plan for partial colon resection. 2. Robotic assisted approach partial colon resection was also reviewed in detail as well as inpatient hospitalization anticipated more than 2 nights. 3. DVT prophylaxis. 4. Antibiotic prophylaxis. 5. Enhance colon recovery program. 6. Mechanical including antibiotic bowel prep. 7. He has completed cardiac risk assessment. 8. Inpatient admission described Past Medical History Past Medical History: Asthma, Coronary Artery Disease (CAD), Cancer, Chest Pain / Angina, Diabetes Mellitus, Hyperlipidemia, Hypertension Additional Past Medical History / Comment(s): MELanoma, HIATAL HERNIA, PROSTATE CANCER (ON ORAL CHEMO), covid approximated 6 months ago History of Any Multi-Drug Resistant Organisms: None Reported Past Surgical History: Coronary Bypass/CABG, Heart Catheterization, Heart Catheterization With Stent Additional Past Surgical History / Comment(s): NASAL POLYPS REMOVED. CORIE. CATARACTS REMOVED WITH LENS IMPLANTS. Three-vessel CABG 01/14/2023 Past Anesthesia/Blood Transfusion Reactions: No Reported Reaction Date of Last Stent Placement:: JUN 2008 Smoking Status: Never smoker - Past Family History Mother Family Medical History: Congestive Heart Failure (CHF), Diabetes Mellitus Father Family Medical History: Cancer Additional Family Medical History / Comment(s): lung cancer Brother(s) Family Medical History: Coronary Artery Disease (CAD) Additional Family Medical History / Comment(s): Diagnoses CAD at early age with subsequent CABG Medications and Allergies Home Medications Medication Instructions Recorded Confirmed Type Multivitamin [Men's Multi-Vitamin] 1 tab PO DAILY 06/28/16 01/18/24 History Tamsulosin [Flomax] 0.4 mg PO HS 12/22/21 01/18/24 History Albuterol Sulfate [Proair 1 puff INHALATION Q4-6H PRN 01/10/23 01/18/24 History Respiclick] Ascorbic Acid [Vitamin C] 500 mg PO DAILY 01/10/23 01/18/24 History Atorvastatin [Lipitor] 80 mg PO HS 01/10/23 01/18/24 History Beclomethasone Dipropionate [Qvar 2 puff INHALATION RT-BID 01/10/23 01/18/24 History 80mcg Redihaler] Cholecalciferol [Vitamin D3 (25 50 mcg PO DAILY 01/10/23 01/18/24 History Mcg = 1000 Iu)] Cranberry Fruit Extract [Cranberry] 4,200 mg PO BID 01/10/23 01/18/24 History Enzalutamide [Xtandi] 160 mg PO HS 01/10/23 01/18/24 History Lansoprazole [Prevacid] 30 mg PO DAILY 01/10/23 01/18/24 History Montelukast [Singulair] 10 mg PO HS 01/10/23 01/18/24 History sitaGLIPtin PHOS/metFORMIN HCL 1 tab PO DAILY 01/10/23 01/18/24 History [Janumet 50-1,000 mg Tablet] Acetaminophen Tab [Tylenol] 650 mg PO Q4HR PRN tab 01/20/23 01/18/24 Rx Clopidogrel [Plavix] 75 mg PO DAILY #30 tab 01/20/23 01/18/24 Rx Empagliflozin [Jardiance] 10 mg PO DAILY #30 tablet 01/20/23 01/18/24 Rx Ferrous Sulfate [Iron (65 MG 325 mg PO BID-W/MEALS #30 tab 01/20/23 01/18/24 Rx Elemental)] Metoprolol Tartrate [Lopressor] 12.5 mg PO BID 02/04/23 01/18/24 History Sennosides-Docusate Sodium 2 tab PO HS PRN 02/04/23 01/18/24 History [Senokot-S] amLODIPine [Norvasc] 2.5 mg PO HS 02/04/23 01/18/24 History Aspirin 81 mg PO BID 01/16/24 01/18/24 History Atorvastatin [Lipitor] 80 mg PO HS 01/16/24 01/18/24 History Cetirizine HCl [Zyrtec] 10 mg PO DAILY 01/16/24 01/18/24 History Leuprolide Acetate [Lupron Depot] 22.5 mg IM DIRECTED 01/16/24 01/18/24 History Allergies Allergy/AdvReac Type Severity Reaction Status Date / Time No Known Allergies Allergy Verified 01/18/24 08:01
[2024-01-18] MEDS: LACTATED RINGERS 1,000 ML IV SCH (08:18)
[2024-01-18] MEDS ORDERED: PROPOFOL 10 MG/ML 20 ML VIAL IV ONE (08:27)
[2024-01-18 08:41] LABS: ALT 25 U/L (4-49); AST 31 U/L (17-59); African American GFR (CKD) >90 (>60 ml/min/1.73 sqM); Albumin 5.1 g/dL (3.5-5.0); Alkaline Phosphatase 71 U/L (38-126); Anion Gap 20 mmol/L; Basophils % (A) 1 %; Blood Urea Nitrogen 18 mg/dL (9-20); Calcium 9.9 mg/dL (8.4-10.2); Carbon Dioxide 14 mmol/L (22-30); Chloride 107 mmol/L (98-107); Eosinophils # (A) 0.5 k/uL (0-0.7); Eosinophils % (A) 9 %; Glucose 119 mg/dL (74-99); HCT 36.6 % (39.0-53.0); HGB 11.8 gm/dL (13.0-17.5); Hypochromasia Slight; Lymphocytes % (A) 19 %; MCHC 32.2 g/dL (31.0-37.0); MCV 90.1 fL (80.0-100.0); Mean Platelet Volume 7.8; Monocytes # (A) 0.4 k/uL (0-1.0); Monocytes % (A) 9 %; Neutrophils # (A) 3.1 k/uL (1.3-7.7); Neutrophils % (A) 59 %; Non-African American GFR(CKD) 86 (>60 ml/min/1.73 sqM); Platelet Count 306 k/uL (150-450); Poikilocytosis Slight; Potassium 3.8 mmol/L (3.5-5.1); RBC 4.06 m/uL (4.30-5.90); Sodium 141 mmol/L (137-145); Total Bilirubin 0.6 mg/dL (0.2-1.3); Total Protein 7.7 g/dL (6.3-8.2); WBC 5.2 k/uL (3.8-10.6)
--- NOTE | 2024-01-18 08:59 | P.PCN ---
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 ANESTHESIA: MAC. INDICATIONS: The patient is an 73-year-old male recently diagnosed with colon cancer. Diagnostic imaging demonstrated no obvious mass. Tattooing was performed for surgical management. Benefits and risks were described and informed consent was obtained. DESCRIPTION OF PROCEDURE: The patient had undergone Sutab prep. The patient had been brought into the operating room and laid in the left lateral decubitus position. After adequate intravenous sedation, the rectum was examined with 2% lidocaine jelly. The prostate was unremarkable. External hemorrhoids were encountered. The rectal tone was within normal limits. No lesions were palpated in the rectal vault. An Olympus colonoscope was advanced until the cecum, ileocecal valve and appendiceal orifice were clearly viewed. The prep was good. Sigmoid diverticulosis was encountered. The sigmoid colon was highly redundant. Residual tumor involving the ascending colon/splenic flexure of 2 cm was found. Jayne ink was injected for tattooing. Arteriovenous malformation was identified 20 cm from the anal verge without active bleeding. No active colitis was found. Retroflexion of the scope demonstrated grade 3 internal hemorrhoids without active bleeding or inflammation. The colon was desufflated. The patient had tolerated the procedure well. Withdrawal time was over 6 minutes. FINDINGS: Aronchick preparation quality scale 2 (1-5) Internal hemorrhoids, grade 2 External hemorrhoids, grade 2. Arteriovenous malformations, 20 cm from anal verge without bleeding Sigmoid diverticulosis without active colitis Redundant sigmoid colon requiring abdominal wall pressure Injection Jayne ink, 5 cc: - Descending colon/splenic flexure of 2 cm based cancer No focal colitis. RECOMMENDATIONS: Recommend admission due to high risk pre-existing comorbidities including anemia, dehydration and high risk procedure
--- NOTE | 2024-01-18 09:05 | P.HPADDEND ---
H&P Addendum H&P Addendum Date: 01/18/24 CT of the abdomen pelvis independently reviewed demonstrating no metastatic lesions or disease. Presence of highly redundant sigmoid colon. Robotic colectomy described however patient has pre-existing high risk. Recommend admission, IV fluid hydration, repeat labs due to anemia and antiemetics.
[2024-01-18] MEDS ORDERED: ACETAMINOPHEN TAB 325 MG TAB PO PRN (09:07)
[2024-01-18] MEDS ORDERED: ALBUTEROL NEBULIZED 2.5 MG/3 ML INHALATION PRN (09:07)
[2024-01-18] MEDS ORDERED: ONDANSETRON 4 MG/2 ML VIAL IVP PRN (09:10)
[2024-01-18 10:28] LABS: Glucose,Whole Blood 100 mg/dL (70-110)
--- NOTE | 2024-01-18 10:42 | XR ---
EXAMINATION TYPE: XR chest 2V DATE OF EXAM: 01/18/2024 COMPARISON: 02/04/2023 INDICATION: Presurgical clearance TECHNIQUE: Frontal and lateral views of the chest are obtained. FINDINGS: The heart size is normal. The pulmonary vasculature is normal. The lungs are clear. Sternotomy wires are present from prior CABG. There is some increased AP diamet er and some flattening diaphragms. Consider COPD. IMPRESSION: 1. No acute pulmonary process. 2. Consider COPD. [facility], , 01/18/2024 10:40 AM
[2024-01-18] MEDS: SODIUM CHLORIDE 0.9% 1,000 ML IV ONE ×2 (13:29→15:17)
[2024-01-18] MEDS: metroNIDAZOLE 500 MG TAB PO SCH (13:59)
[2024-01-18] MEDS: NEOMYCIN 500 MG TAB PO SCH (13:59)
[2024-01-18] MEDS: PEG 3350 (420 GM/BTL) + LYTES 4,000 ML BOTTLE PO ONE (15:38)
[2024-01-18] MEDS: FLUTICASONE 110 MCG INHALER INHALATION SCH (21:37)
[2024-01-18] MEDS: METOPROLOL TARTRATE 12.5 MG TAB PO SCH (22:32)
[2024-01-18] MEDS: ASPIRIN 81 MG PO SCH (22:33)
[2024-01-18] MEDS: MONTELUKAST 10 MG TAB PO SCH (22:33)
[2024-01-18] MEDS: amLODIPine 2.5 MG TAB PO SCH (22:33)
[2024-01-18] MEDS: TAMSULOSIN 0.4 MG CAP.ER.24H PO SCH (22:33)
[2024-01-18] MEDS: TEMAZEPAM 15 MG CAP PO ONE (22:33)
[2024-01-19] MEDS ORDERED: metroNIDAZOLE-NS PMX 500 MG in SALINE 1 100ML.BAG IVPB PRN (05:00)
[2024-01-19 05:46] LABS: Basophils % (A) 0 %; Eosinophils # (A) 0.3 k/uL (0-0.7); Eosinophils % (A) 3 %; HCT 31.5 % (39.0-53.0); HGB 10.1 gm/dL (13.0-17.5); Hypochromasia Moderate; Lymphocytes # (A) 0.9 k/uL (1.0-4.8); Lymphocytes % (A) 9 %; MCH 29.1 pg (25.0-35.0); MCHC 31.9 g/dL (31.0-37.0); MCV 91.3 fL (80.0-100.0); Mean Platelet Volume 7.9; Monocytes # (A) 0.6 k/uL (0-1.0); Monocytes % (A) 6 %; Neutrophils # (A) 7.9 k/uL (1.3-7.7); Neutrophils % (A) 80 %; Platelet Count 263 k/uL (150-450); Poikilocytosis Slight; RBC 3.45 m/uL (4.30-5.90); WBC 9.9 k/uL (3.8-10.6)
[2024-01-19 06:11] LABS: ALT 20 U/L (4-49); AST 23 U/L (17-59); African American GFR (CKD) >90 (>60 ml/min/1.73 sqM); Albumin 3.5 g/dL (3.5-5.0); Albumin/Globulin Ratio 1.5; Alkaline Phosphatase 52 U/L (38-126); Anion Gap 11 mmol/L; Blood Urea Nitrogen 7 mg/dL (9-20); Calcium 9.2 mg/dL (8.4-10.2); Carbon Dioxide 16 mmol/L (22-30); Chloride 113 mmol/L (98-107); Globulin 2.4 g/dL; Glucose 111 mg/dL (74-99); Non-African American GFR(CKD) >90 (>60 ml/min/1.73 sqM); Potassium 3.8 mmol/L (3.5-5.1); Sodium 140 mmol/L (137-145); Total Bilirubin 0.5 mg/dL (0.2-1.3); Total Protein 5.9 g/dL (6.3-8.2)
[2024-01-19] MEDS: LORATADINE 10 MG TAB PO SCH (08:46)
[2024-01-19] MEDS: IV FLUID CONTINUATION 1,000 ML IV ONE ×2 (13:04→16:01)
[2024-01-19] MEDS: ACETAMINOPHEN TAB 500 MG TAB PO PRN (13:17)
[2024-01-19] MEDS: ALVIMOPAN 12 MG CAPSULE PO PRN (13:17)
[2024-01-19] MEDS: ONDANSETRON 4 MG/2 ML VIAL IVP PRN (13:20)
[2024-01-19 13:26] LABS: Glucose,Whole Blood 93 mg/dL (70-110)
[2024-01-19] MEDS: HEPARIN SODIUM,PORCINE 5,000 UNIT/ML 1 ML VIAL SQ PRN (13:49)
[2024-01-19] MEDS: MIDAZOLAM 2 MG/2 ML VIAL IV ONE (13:54)
[2024-01-19] MEDS ORDERED: ceFAZolin 1 GM/50 ML BAG (PMX) ONE (14:54)
[2024-01-19] MEDS ORDERED: LIDOCAINE 1% INJ 10MG/ML (20 ML MDV) ONE (14:54)
[2024-01-19] MEDS ORDERED: ePHEDrine 50 MG/ML 1 ML VIAL ONE (14:54)
[2024-01-19] MEDS ORDERED: LABETALOL 5 MG/ML VIAL MDV ONE (14:54)
[2024-01-19] MEDS ORDERED: SUCCINYLCHOLINE CHLORIDE 200 MG/10 ML VIAL IV ONE (14:54)
[2024-01-19] MEDS ORDERED: fentaNYL (PF) 50 MCG/ML 2 ML AMP ONE (14:54)
[2024-01-19] MEDS ORDERED: ROCURONIUM 10 MG/ML (5 ML VIAL) IV ONE (14:54)
[2024-01-19] MEDS ORDERED: PROPOFOL 10 MG/ML 20 ML VIAL IV ONE (14:54)
[2024-01-19] MEDS: LIDOCAINE 1%-EPI 1:100,000 20 ML VIAL SQ ONE (15:39)
[2024-01-19] MEDS: LACTATED RINGERS 1,000 ML IV ONE (19:19)
[2024-01-19 20:29] LABS: Glucose,Whole Blood 178 mg/dL (70-110)
--- NOTE | 2024-01-19 20:31 | P.PN ---
Progress Note - Text Progress Note Date: 01/19/24 Patient reported having dark stools including has worsening anemia 10.1 down from 11.8. Will attempt to do upper endoscopy to assess for upper GI bleed. Patient denies any bright red blood per rectum. Robotic colectomy described for colon cancer.
[2024-01-19] MEDS ORDERED: DEXTROSE 50% SYRINGE 50 ML IVP PRN ×2 (20:32)
--- NOTE | 2024-01-19 20:42 | P.OP ---
Date of Procedure: 01/19/24 Description of Procedure: SURGEON: MICHELLE SWEENEY MD PREOPERATIVE DIAGNOSES: 1. Descending colon cancer 2. Anemia 3. Melena with GI bleed POSTOPERATIVE DIAGNOSES: 1. Splenic flexure colon cancer 2. Anemia 3. Melena with GI bleed OPERATION: 1. Robotic-assisted daVinci Xi laparoscopic mobilization of splenic flexure 2. Robotic-assisted daVinci Xi left hemicolectomy 3. Intraoperative upper endoscopy attempted but aborted Anesthesia: GETA, local, regional Estimated Blood Loss (ml): 50 Pathology: 1. Left colon 2. Anastomosis 3. Omentum transfers: Condition: stable Disposition: floor COMPLICATIONS: None. Operative Findings: 1. Jayne ink found to at splenic flexure requiring mobilization of splenic flexure 2. Highly redundant sigmoid colon mobilized along the splenic flexure down the sigmoid colon 3. Moderate transverse mesocolon 4. Linear stapler [id number] colocolonic anastomosis with reinforcement suture at anastomosis x 2 and antiobstruction stitch placed from omentum to anterior serosa sigmoid colon 5. Right indirect inguinal hernia without obstruction INDICATIONS: The patient is a 73-year-old male recently diagnosed with descending colon cancer. Yesterday, endoscopic tattooing performed to prepare for robotic resection. Patient reported having pre-existing anemia however melena and GI bleed prior to his admission. Upper endoscopy was described at the time of his procedure. Benefits and risks of surgical intervention was described in detail including infection, injury to the ureter, colostomy creation, possibility for additional surgery was discussed at length. Informed consent was obtained. All questions of the patient and family were answered. DESCRIPTION: Earlier the patient had undergone a bowel prep using the enhanced colon recovery program. The patient was transferred to the operating room and placed supine. After general induction, the abdomen was prepped and draped in standard sterile fashion. Patient was repositioned in the modified lithotomy position. Ioban was placed along the abdomen to minimize any contamination of skin floor. A Sahni catheter was placed. After a timeout protocol was performed, attention was then brought to the left upper quadrant whereby a 0 degree 5 mm laparoscopic trocar entry was performed. The abdominal cavity was entered and insufflated to 15 mmHg pressure, which was tolerated well. Diagnostic laparoscopy demonstrated severe intra-abdominal adhesions involving the mid abdomen and upper abdomen. Large colon and small bowel were adhered to the epigastrium. Next a robotic 12-mm trocar was placed along the right lateral abdominal wall 20 cm superior from the pelvis. Two 8 mm ports were placed along the upper abdomen. Ports were placed 10 cm apart from each other including 20 cm away from the target anatomy of the left pelvis. The 12-mm port was exchanged for an 8 mm robotic port at the left upper quadrant. The robot was docked along the left lateral abdomen. The patient was positioned in steep Trendelenburg position at 21-degrees. Using atraumatic graspers and vessel sealer, the robotic system was docked and primed as described. Instruments were interchanged by the optical assistant including hook cautery, needle hazardous materials driver, robotic stapler and vessel sealer. The robot stapler was prepared along the right lateral abdominal wall. The stapler 12-mm port was arranged along the right lateral abdominal wall. Next, attention was brought to identify the sigmoid colon. The sigmoid colon was highly redundant with features of diverticulosis and stenosis. The sigmoid colon was mobilized along the left lateral abdominal wall towards the descending colon and splenic flexure. The colon was tethered along the upper abdomen due to severe adhesions. Due to these findings, the robot was docked toward the upper abdomen. Patient was repositioned to the reverse Trendelenburg position, 10 degrees. Extensive laparoscopic lysis of adhesions over 1.5 hours performed taking down adherent omentum to abdominal wall including transverse colon and small bowel from the abdominal wall. The colon and small bowel were adherent to the epigastrium. Gastric pull-through was identified with the transverse colon adherent to the small bowel and released using vessel sealer. After release of adhesions, attention was brought down to the pelvis. A stay suture using 3- 0 silk was placed along the anterior serosa of the redundant sigmoid colon. The sigmoid mesentery was mobilized using a vessel sealer whereby the descending colon was marked and tagged. Using multiple fires of the robot stapler 60 mm green load, the proximal sigmoid colon was divided. The mesentery of the sigmoid colon was mobilized towards the pelvic brim and sacral promontory using a vessel sealer. The sigmoid volvulus was reduced with viable colon. Next, the sigmoid colon was divided using the robotic stapler 60 mm black staple loads. The rest of the sigmoid colon mesentery was mobilized using vessel sealer. Additionally, the sigmoid colon was mobilized onto the colon to minimize injury to the ureters. I went to the foot of the bed to confirm sizers and placement of 29-mm Ethicon powered stapler. I re-scrubbed into the case. The robotic arms were temporarily undocked. A 29-mm anvil was placed with a 3-0 silk sutured at the tip of the anvil consulting services manager. Then the anvil was placed via the left upper quadrant 12 mm port. All robotic arms were re-docked. I went back to the console. The staple line was opened using cautery. The anvil was entered into the proximal descending colon. The colotomy was closed using 60 mm green load. Next, the sharp tip of the anvil consulting services manager was brought through the staple line. The anvil consulting services manager was removed from the abdomen using empty clip appliers. I went to the foot of the bed to place the powered Ethicon 29 mm stapler via the rectum. The anvil and stapler were mated for 1 minute. The doughnuts were intact on both sides and thick. An intraoperative leak test was performed as I inserted the colonoscope to the anastomosis. Endoscopic images were obtained. Irrigation was placed in the pelvis and no air leaks were identified. Irrigation fluid was aspirated from the pelvis until dry. I went back to the console. All sponges and needles were removed from the abdominal cavity. The robot was undocked. I re-scrubbed into the case. Via the left upper quadrant port, the sigmoid colon was removed using 15 mm Endo Catch bag. All sponges were removed from the abdominal cavity. The left upper quadrant incision was widened to 3-cm. No contamination had occurred throughout the case. The fascial defect was oversewn using 0 Vicryl and a Peter Cohn. Next all pneumoperitoneum was evacuated from the abdominal cavity. The 8-mm trocar sites were reapproximated using 4-0 Monocryl in an interrupted subcuticular fashion. Local anesthetic was infiltrated to all wounds for postop analgesia. All incisions were also cleansed with diluted hydrogen peroxide. Optifoam 4 x 4 surgical dressing was placed over the colon extraction site. Liquid glue was applied to the rest of the skin incisions. Abdominal binder was placed. The patient had tolerated the procedure well. The patient was extubated successfully. The patient was transferred to the postanesthesia care unit in stable condition. Intraoperative findings were described in detail to the patient's family.
[2024-01-19 22:18] LABS: Glucose,Whole Blood 131 mg/dL (70-110)
[2024-01-19] MEDS: INSULIN ASPART (NovoLOG) 100 UNIT/ML VIAL SQ SCH (22:18)
[2024-01-19] MEDS: BENZOCAINE/MENTHOL LOZENG 1 EACH LOZENGE MUCOUS MEM PRN (22:27)
[2024-01-19] MEDS: FAMOTIDINE 20 MG/2 ML VIAL IV SCH (22:27)
[2024-01-19] MEDS: ALVIMOPAN 12 MG CAPSULE PO SCH (22:27)
[2024-01-19] MEDS: HYDROmorphone 1 MG/ML 1 ML SYRINGE IVP PRN (22:28)
[2024-01-19] MEDS: SIMETHICONE 40 MG/0.6 ML DROPS 2,000 MG/30 ML BOTTLE PO SCH (22:32)
[2024-01-19] MEDS: D5-0.45% NACL WITH KCL 20MEQ/L 1,000 ML IV SCH (23:23)
[2024-01-20 00:39] LABS: African American GFR (CKD) >90 (>60 ml/min/1.73 sqM); Anion Gap 11 mmol/L; Blood Urea Nitrogen 7 mg/dL (9-20); Carbon Dioxide 17 mmol/L (22-30); Chloride 110 mmol/L (98-107); Glucose 115 mg/dL (74-99); Non-African American GFR(CKD) >90 (>60 ml/min/1.73 sqM); Sodium 138 mmol/L (137-145)
[2024-01-20] MEDS: metroNIDAZOLE-NS PMX 500 MG in SALINE 1 100ML.BAG IVPB SCH (00:58)
[2024-01-20] MEDS: ACETAMINOPHEN TAB 500 MG TAB PO SCH (00:58)
[2024-01-20] MEDS: HEPARIN SODIUM,PORCINE 5,000 UNIT/ML 1 ML VIAL SQ SCH (00:59)
[2024-01-20 06:41] LABS: Glucose,Whole Blood 112 mg/dL (70-110)
[2024-01-20 08:22] VITALS: RESP 18
[2024-01-20] MEDS: PANTOPRAZOLE 40 MG/10 ML VIAL IVP SCH (08:29)
--- NOTE | 2024-01-20 09:54 | P.PN ---
Subjective Progress Note Date: 01/20/24 CHIEF COMPLAINT: Colon cancer HISTORY OF PRESENT ILLNESS: Patient is postop day #1 status post Robotic-as sisted daVinci Xi laparoscopic mobilization of splenic flexure and left hemicolectomy. Patient is sitting up at bedside chair. He has tolerated diet. Pain is controlled. Sahni catheter removed this morning. He does complain of gas pains radiating up into the left shoulder. Denies any nausea or vomiting. Patient complains of feeling unsteady with walking. Afebrile. Labs pending PHYSICAL EXAM: VITAL SIGNS: Reviewed GENERAL: Well-developed in no acute distress. HEENT: No sclera icterus. Extraocular movements grossly intact. Moist buccal mucosa. Head is atraumatic, normocephalic. Hears conversational speech. No nasal drainage. NECK: Supple without lymphadenopathy. CHEST: Non-labored respirations and equal bilateral excursions. CARDIOVASCULAR: Palpable 2+ radial pulses. ABDOMEN: Soft. Mildly distended. Abdominal binder in place. MUSCULOSKELETAL: No clubbing or cyanosis. NEUROLOGIC: No focal or lateralizing signs. Cranial nerves II through XII grossly intact. PSYCH: Appropriate affect. Alert and oriented to person, place and time. SKIN: Well perfused. Good skin turgor. ASSESSMENT: 1. Splenic flexure colon cancer 2. Anemia 3. Melena with GI bleed PLAN: -Continue low fiber diet. Educated patient to go slow with diet -Consult physical therapy -Encourage patient to ambulate -Continue Mylicon gas drops -Continue pain management -Incentive spirometer ordered -Continue IV fluids -GI prophylaxis subcu heparin and DVT prophylaxis Pepcid Physician Fertilizer Supervisor note has been reviewed by physician. Signing provider agrees with the documented findings, assessment, and plan of care. Objective - Vital Signs Vital signs: Vital Signs Temp 98.2 F 01/20/24 07:19 Pulse 70 01/20/24 07:19 Resp 18 01/20/24 07:19 BP 128/71 01/20/24 07:19 Pulse Ox 96 01/20/24 08:46 FiO2 Intake & Output 01/19/24 01/20/24 01/20/24 18:59 06:59 18:59 Intake Total 2049 300 Output Total 1100 Balance 2049 -800 Intake: IV 2049 300 Output: Urine 1050 Uretheral (Sahni) 600 Estimated Blood Loss 50 Other: Voiding Method Toilet Indwelling Catheter - Labs CBC & Chem 7: 01/19/24 05:11 01/19/24 23:29 Labs: Abnormal Lab Results - Last 24 Hours (Table) 01/19/24 01/19/24 01/19/24 Range/Units 20:28 22:17 23:29 Chloride 110 H (98-107) mmol/L Carbon Dioxide 17 L (22-30) mmol/L BUN 7 L (9-20) mg/dL Creatinine 0.59 L (0.66-1.25) mg/dL Glucose 115 H (74-99) mg/dL POC Glucose (mg/dL) 178 H 131 H (70-110) mg/dL 01/20/24 Range/Units 06:39 Chloride (98-107) mmol/L Carbon Dioxide (22-30) mmol/L BUN (9-20) mg/dL Creatinine (0.66-1.25) mg/dL Glucose (74-99) mg/dL POC Glucose (mg/dL) 112 H (70-110) mg/dL
[2024-01-20 10:50] LABS: Basophils # (A) 0.03 X 10*3/uL (0.00-0.10); Basophils % (A) 0.4 %; Eosinophils % (A) 1.3 %; HCT 30.7 % (39.6-50.0); HGB 9.5 g/dL (13.0-17.0); Lymphocytes % (A) 11.3 %; MCH 27.8 pg (27.0-32.0); MCHC 30.9 g/dL (32.0-37.0); MCV 89.8 FL (80.0-97.0); Mean Platelet Volume 10.8 FL (9.5-12.2); Monocytes # (A) 0.72 X 10*3/uL (0.20-1.00); NRBC Per 100 WBC 0 X 10*3/uL (0.00-0.01); Neutrophils % (A) 77.6 %; Platelet Count 270 X 10*3/uL (140-440); RBC 3.42 X 10*6/uL (4.40-5.60); RDW 13.2 % (11.5-14.5); WBC 7.98 X 10*3/uL (4.50-10.00)
[2024-01-20 11:31] LABS: Glucose,Whole Blood 146 mg/dL (70-110)
--- NOTE | 2024-01-20 11:31 | P.CRDCN ---
History of Present Illness History of present illness: This is Dr. Bagley dictating a consult on this patient The patient was interviewed and examined IMPRESSION / ASSESSMENT: Colon cancer awaiting surgery Hypertension Dyslipidemia Multivessel coronary artery disease Coronary artery bypass grafting in December 2022 Preserved LV size and systolic function No heart failure symptoms no angina no shortness of breath no dizziness PLAN: Plavix was held prior to surgery, 7 days prior. Currently on aspirin, continue with monotherapy Continue atorvastatin milligrams p.o. daily Continue metoprolol 25 mg twice daily HPI Patient denies any chest discomfort dizziness or lightheadedness. He looks very pale and is awaiting colonoscopy today. He is also awaiting colon surgery for cancer ROS: No fever chills or rigors, no cough, phlegm or expectoration, no nausea, vomiting or diarrhea, no hematuria, dysuria, no musculoskeletal complaints, no strokes or seizures, no skin lesions. 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 CORIE. CATARACTS REMOVED WITH LENS IMPLANTS. Three-vessel CABG 01/14/2023, 2021 prostatectomy Past Anesthesia/Blood Transfusion Reactions: No Reported Reaction Date of Last Stent Placement:: JUN 2008 Past Psychological History: No Psychological Hx Reported Smoking Status: Never smoker Past Alcohol Use History: None Reported, Rare Past Drug Use History: None Reported - Past Family History Mother Family Medical History: Congestive Heart Failure (CHF), Diabetes Mellitus Father Family Medical History: Cancer Additional Family Medical History / Comment(s): lung cancer Brother(s) Family Medical History: Coronary Artery Disease (CAD) Additional Family Medical History / Comment(s): Diagnoses CAD at early age with subsequent CABG Medications and Allergies Home Medications Medication Instructions Recorded Confirmed Type Multivitamin [Men's Multi-Vitamin] 1 tab PO DAILY 06/28/16 01/18/24 History Tamsulosin [Flomax] 0.4 mg PO HS 12/22/21 01/18/24 History Albuterol Sulfate [Proair 1 puff INHALATION Q4-6H PRN 01/10/23 01/18/24 History Respiclick] Ascorbic Acid [Vitamin C] 500 mg PO DAILY 01/10/23 01/18/24 History Atorvastatin [Lipitor] 80 mg PO HS 01/10/23 01/18/24 History Beclomethasone Dipropionate [Qvar 2 puff INHALATION RT-BID 01/10/23 01/18/24 History 80mcg Redihaler] Cholecalciferol [Vitamin D3 (25 50 mcg PO DAILY 01/10/23 01/18/24 History Mcg = 1000 Iu)] Cranberry Fruit Extract [Cranberry] 4,200 mg PO BID 01/10/23 01/18/24 History Enzalutamide [Xtandi] 160 mg PO HS 01/10/23 01/18/24 History Lansoprazole [Prevacid] 30 mg PO DAILY 01/10/23 01/18/24 History Montelukast [Singulair] 10 mg PO HS 01/10/23 01/18/24 History sitaGLIPtin PHOS/metFORMIN HCL 1 tab PO DAILY 01/10/23 01/18/24 History [Janumet 50-1,000 mg Tablet] Acetaminophen Tab [Tylenol] 650 mg PO Q4HR PRN tab 01/20/23 01/18/24 Rx Clopidogrel [Plavix] 75 mg PO DAILY #30 tab 01/20/23 01/18/24 Rx Empagliflozin [Jardiance] 10 mg PO DAILY #30 tablet 01/20/23 01/18/24 Rx Ferrous Sulfate [Iron (65 MG 325 mg PO BID-W/MEALS #30 tab 01/20/23 01/18/24 Rx Elemental)] Metoprolol Tartrate [Lopressor] 12.5 mg PO BID 02/04/23 01/18/24 History Sennosides-Docusate Sodium 2 tab PO HS PRN 02/04/23 01/18/24 History [Senokot-S] amLODIPine [Norvasc] 2.5 mg PO HS 02/04/23 01/18/24 History Aspirin 81 mg PO BID 01/16/24 01/18/24 History Atorvastatin [Lipitor] 80 mg PO HS 01/16/24 01/18/24 History Cetirizine HCl [Zyrtec] 10 mg PO DAILY 01/16/24 01/18/24 History Leuprolide Acetate [Lupron Depot] 22.5 mg IM DIRECTED 01/16/24 01/18/24 History Allergies Allergy/AdvReac Type Severity Reaction Status Date / Time No Known Allergies Allergy Verified 01/19/24 12:58 Physical Exam Vitals: Vital Signs Temp Pulse Resp BP Pulse Ox 01/19/24 12:57 97.3 F L 60 14 141/73 98 01/19/24 08:00 97.5 F L 57 L 17 118/70 98 01/19/24 02:08 97.4 F L 63 16 101/61 97 01/18/24 19:33 97.7 F 88 15 123/73 95 Intake and Output 01/19/24 01/19/24 01/19/24 06:59 14:59 22:59 Intake Total 1050 Balance 1050 Intake: IV 1050 Other: Voiding Method Toilet Results 01/20/24 06:24 01/19/24 23:29 Cardiac Enzymes 01/19/24 Range/Units 05:11 AST 23 (17-59) U/L CBC 01/19/24 Range/Units 05:11 WBC 9.9 (3.8-10.6) k/uL RBC 3.45 L (4.30-5.90) m/uL Hgb 10.1 L (13.0-17.5) gm/dL Hct 31.5 L (39.0-53.0) % Plt Count 263 (150-450) k/uL Comprehensive Metabolic Panel 01/19/24 Range/Units 05:11 Sodium 140 (137-145) mmol/L Potassium 3.8 (3.5-5.1) mmol/L Chloride 113 H (98-107) mmol/L Carbon Dioxide 16 L (22-30) mmol/L BUN 7 L (9-20) mg/dL Creatinine 0.56 L (0.66-1.25) mg/dL Glucose 111 H (74-99) mg/dL Calcium 9.2 (8.4-10.2) mg/dL AST 23 (17-59) U/L ALT 20 (4-49) U/L Alkaline Phosphatase 52 (38-126) U/L Total Protein 5.9 L (6.3-8.2) g/dL Albumin 3.5 (3.5-5.0) g/dL Current Medications Generic Name Dose Route Start Last Admin Trade Name Freq PRN Reason Stop Dose Admin Acetaminophen 650 mg 01/18/24 09:07 Acetaminophen Tab 325 Mg Tab PO 02/17/24 09:06 Q4HR PRN Fever and/ or Mild Pain Albuterol Sulfate 2.5 mg 01/18/24 09:07 Albuterol Nebulized 2.5 Mg/3 Ml INHALATION RT-Q4H PRN Dyspnea Amlodipine Besylate 2.5 mg 01/18/24 21:00 01/18/24 22:33 Amlodipine 2.5 Mg Tab PO 02/17/24 20:59 2.5 mg HS ANDREA Administration Aspirin 81 mg 01/18/24 21:00 01/19/24 08:45 Aspirin 81 Mg PO 02/17/24 20:59 Not Given BID ANDREA Fluticasone Propionate 2 puff 01/18/24 20:00 01/19/24 08:04 Fluticasone 110 Mcg Inhaler INHALATION 02/17/24 19:59 Not Given RT-BID ANDREA Heparin Sodium (Porcine) 5,000 unit 01/19/24 05:00 01/19/24 13:49 Heparin Sodium,Porcine 5,000 Unit/Ml 1 Ml Vial SQ 01/19/24 23:00 5,000 unit ONCE PRN Administration Pre-Op Lactated Ringer's 1,000 mls @ 20 mls/hr 01/18/24 07:15 01/19/24 13:04 Lactated Ringers IV 02/17/24 07:14 20 mls/hr .Q24H ANDREA Administration Metronidazole 500 mg/ IV 100 mls @ 100 mls/hr 01/19/24 05:00 Solution IVPB 01/20/24 00:01 ONCE PRN pre-op Loratadine 10 mg 01/19/24 09:00 01/19/24 08:46 Loratadine 10 Mg Tab PO 02/18/24 08:59 10 mg DAILY ANDREA Administration Metoprolol Tartrate 12.5 mg 01/18/24 21:00 01/19/24 08:46 Metoprolol Tartrate 12.5 Mg Tab PO 02/17/24 20:59 12.5 mg BID ANDREA Administration Miscellaneous Information 1 each 01/18/24 09:02 Antibiotics Per Pharmacy 1 Each Misc MISCELLANE 02/17/24 09:01 DIRECTED PRN Per Protocol Montelukast Sodium 10 mg 01/18/24 21:00 01/18/24 22:33 Montelukast 10 Mg Tab PO 02/17/24 20:59 10 mg HS ANDREA Administration Ondansetron HCl 4 mg 01/18/24 09:10 Ondansetron 4 Mg/2 Ml Vial IVP 02/17/24 11:59 Q6HR PRN Nausea Tamsulosin HCl 0.4 mg 01/18/24 21:00 01/18/24 22:33 Tamsulosin 0.4 Mg Cap.Er.24h PO 02/17/24 20:59 Not Given HS ANDREA Intake and Output 01/19/24 01/19/24 01/19/24 06:59 14:59 22:59 Intake Total 1050 Balance 1050 Intake: IV 1050 Other: Voiding Method Toilet 01/19/24 05:11 01/19/24 05:11
[2024-01-20 14:53] VITALS: BP 136/73; PULSE 73; TEMP 98.3
[2024-01-20 16:58] LABS: Glucose,Whole Blood 123 mg/dL (70-110)
--- NOTE | 2024-01-22 14:25 | P.PN ---
Progress Note - Text Progress Note Date: 01/22/24 Patient contacted at home. Reports already having 3 bowel movements. He did have occasional discomfort on yesterday following discharge. He is passing flatus. Tolerating diet. Pain is tolerable. He does report dark schools that was pre-existing prior to her surgery. Patient advised to do not restart Plavix until January 26. In the interim, continue omeprazole. Patient asked to eat yogurt daily to act as a antiacid such as Tums. Follow-up in 72 hours via telehealth described. Time of conversation 1419 to 1421.
== END 2024-01-20 18:09 | disposition home or self-care (01) | DRG 330 ==
LOC: ORWHC2ENDO 07:37 → 4SSUR 08:30 → ORWHC2ENDO 01-19 13:21 → 4SSUR 01-19 13:21
PROVIDERS: ADMIT Surgery Plastic and Reconstructive Surgery; ATTEND Surgery Plastic and Reconstructive Surgery
PROC: 0DJD8ZZ Inspection of Lower Intestinal Tract, Via Natural or Artificial Opening Endoscopic (ICD-10-PCS; 2024-01-19)
PROC: 8E0W4CZ Robotic Assisted Procedure of Trunk Region, Percutaneous Endoscopic Approach (ICD-10-PCS; 2024-01-19)
PROC: 0DTG0ZZ Resection of Left Large Intestine, Open Approach (ICD-10-PCS; principal; 2024-01-19 13:25)
DX: C18.6 Malignant neoplasm of descending colon (principal); C18.5 Malignant neoplasm of splenic flexure; Q43.8 Other specified congenital malformations of intestine; K57.30 Diverticulosis of large intestine without perforation or abscess without bleeding; E86.0 Dehydration; D64.9 Anemia, unspecified; I25.10 Atherosclerotic heart disease of native coronary artery without angina pectoris; E11.9 Type 2 diabetes mellitus without complications; E78.5 Hyperlipidemia, unspecified; I10 Essential (primary) hypertension; J45.909 Unspecified asthma, uncomplicated; K40.90 Unilateral inguinal hernia, without obstruction or gangrene, not specified as recurrent; K64.4 Residual hemorrhoidal skin tags; K64.8 Other hemorrhoids; K66.0 Peritoneal adhesions (postprocedural) (postinfection); Z79.02 Long term (current) use of antithrombotics/antiplatelets; Z79.82 Long term (current) use of aspirin; Z79.84 Long term (current) use of oral hypoglycemic drugs; Z79.899 Other long term (current) drug therapy; Z80.1 Family history of malignant neoplasm of trachea, bronchus and lung; Z82.49 Family history of ischemic heart disease and other diseases of the circulatory system; Z83.3 Family history of diabetes mellitus; Z85.038 Personal history of other malignant neoplasm of large intestine; Z85.46 Personal history of malignant neoplasm of prostate; Z85.820 Personal history of malignant melanoma of skin; Z95.1 Presence of aortocoronary bypass graft; Z98.42 Cataract extraction status, left eye; Z98.41 Cataract extraction status, right eye; Z96.1 Presence of intraocular lens
CPT/HCPCS: 44404; 71046; 80048; 80053; 83036; 85025; 88304; 88309; 88341; 88342; 93005; 94760

== ENCOUNTER → 2024-02-10 | Outpatient (CLI) | payer MEDICARE ==
[2024-02-10 16:33] LABS: Prostate Specific Antigen <0.01 ng/mL (0.000-6.500); Testosterone <10.00 ng/dL (86.98-780.10)
== END | disposition home or self-care (01) ==
LOC: LABWHC1 11:34
PROVIDERS: ATTEND Urology
DX: C61 Malignant neoplasm of prostate (principal)
CPT/HCPCS: 36415; 84153; 84403

== ENCOUNTER → 2024-08-22 | Outpatient (CLI) | payer MEDICARE ==
[2024-08-22 15:30] LABS: Testosterone <10.00 ng/dL (86.98-780.10)
[2024-08-22 15:34] LABS: Prostate Specific Antigen <0.01 ng/mL (0.000-6.500)
== END | disposition home or self-care (01) ==
LOC: LABWHC1 09:07
PROVIDERS: ATTEND Orthopaedic Surgery
DX: C61 Malignant neoplasm of prostate (principal)
CPT/HCPCS: 36415; 84153; 84403

== ENCOUNTER → 2024-08-28 | Outpatient (CLI) | payer MEDICARE ==
--- NOTE | 2024-08-28 13:52 | MR ---
EXAMINATION TYPE: MR shoulder RT wo con DATE OF EXAM: 08/28/2024 10:51 AM COMPARISON: None. CLINICAL INDICATION: Male, 74 years old with history of M25.511 PAIN IN RIGHT SHOULDER, Right shoulde r pain, decreased ROM. TECHNIQUE: Multiplanar multispin echo imaging of the right shoulder was performed. FINDINGS: Rotator cuff : There is thickening and heterogeneity of the supraspinatus tendon without evidence for definite tear. There is no complete or bursal/articular sided partial rotator cuff tear. The subscap ularis constituent of the rotator cuff is intact. Bursa: No bursal effusion or thickening is seen. Musculature: There is no muscular tear, contusion, or atrophy. Acromioclavicular joint : There are mild degenerative changes of the acromioclavicular joint. Small s ubacromial spur results in mild impingement. Osseous structures : There are no fractures or regions of abnormal bone marrow signal intensity. Long biceps tendon : The biceps tendon is normally situated within the bicipital groove. No complete or partial biceps tendon tear is present. Glenohumeral Joint fluid : There is no glenohumeral joint effusion. Cartilage and Bone : No focal hyaline cartilage defects are noted. No Hill-Sachs, reverse Hill-Sachs, or bony Bankart lesions are seen. Labrum : There are no SLAP or soft tissue Bankart lesions. No paralabral cysts are seen. OTHER FINDINGS : Small amount of subcoracoid fluid noted. IMPRESSION: 1. Chronic tendinopathy without evidence for tear at this time. Small subacromial spur resulting in m ild impingement. [facility], , 08/28/2024 1:50 PM
== END | disposition home or self-care (01) ==
LOC: RADMRIMAIN 09:55
PROVIDERS: ATTEND Orthopaedic Surgery
DX: M25.811 Other specified joint disorders, right shoulder (principal); M67.813 Other specified disorders of tendon, right shoulder

== ENCOUNTER → 2024-11-26 | Outpatient (CLI) | payer MEDICARE ==
[2024-11-26 13:02] LABS: African American GFR (CKD) >90 (>60 ml/min/1.73 sqM); Blood Urea Nitrogen 20 mg/dL (9-20); Non-African American GFR(CKD) >90 (>60 ml/min/1.73 sqM)
--- NOTE | 2024-11-26 15:07 | CT ---
INDICATION: Patient age:Male; 74 years old; Reason for study: C61 MALIGNANT NEOPLASM OF PROSTATE; [facility]. COMPARISON: CT abdomen/pelvis 11/29/2023. TECHNIQUE: Standard CT of the abdomen and pelvis following the administration of IV contrast and or al material. Contrast details can be found in patient's chart. Coronal and sagittal reformats were pe rformed. One or more CT dose reduction strategies were utilized during this examination. Total DLP ad ministered was 1358 mGycm. FINDINGS: LOWER CHEST: Bibasilar atelectasis. ABDOMEN LIVER: Diffusely hypoattenuating, consistent with hepatic steatosis. GALLBLADDER AND BILE DUCTS: Unremarkable. PANCREAS: Unremarkable. SPLEEN: Subcentimeter hypoattenuated focus seen in the spleen similar too prior to small to character ize. ADRENAL GLANDS: Unremarkable. KIDNEYS AND URETERS: No evidence of hydronephrosis or renal calculus. Simple partially exophytic left renal cyst. The ureters are unremarkable. PELVIS URINARY BLADDER: Incompletely distended but grossly unremarkable. REPRODUCTIVE: Coarse calcifications of the prostate gland are identified. Trace hydrocele suggested. ABDOMEN & PELVIS STOMACH AND BOWEL: Stomach is grossly unremarkable. Small bowel is of normal caliber. Postsurgical ch anges noted in the left-sided colon. No evidence of bowel obstruction. PERITONEUM: No evidence of pneumoperitoneum or free fluid. VASCULATURE: No evidence of aortic aneurysm. MUSCULOSKELETAL: No acute osseous abnormalities LYMPH NODES: Few scattered nonenlarged lymph nodes are seen in the mid abdomen and right iliac chain measuring up to 6 mm in short axis. SOFT TISSUE/ABDOMINAL WALL: Small fat filled bilateral inguinal hernias. IMPRESSION: 1. No acute intra-abdominal/pelvic process. 2. Nonenlarged lymph nodes seen in the mid abdomen and right iliac chain measuring up to 6 mm in shor t axis. Attention on follow-up. 3. Hepatic steatosis. [facility], , 11/26/2024 3:05 PM
== END | disposition home or self-care (01) ==
LOC: RADCTMAIN 12:21
PROVIDERS: ATTEND Internal Medicine Hematology & Oncology
DX: C61 Malignant neoplasm of prostate (principal); C18.6 Malignant neoplasm of descending colon; J45.909 Unspecified asthma, uncomplicated; K76.0 Fatty (change of) liver, not elsewhere classified; Z71.3 Dietary counseling and surveillance
CPT/HCPCS: 82565; 84520; 74177; 36415; Q9967